=== PATIENT | female | born 1975 | race Caucasian/White ===

== ENCOUNTER → 2017-04-14 | Outpatient (CLI) | payer MEDICAID ==
--- NOTE | 2017-04-15 08:50 | MM ---
Reason for exam: additional evaluation requested from prior study. Last mammogram was performed 1 year and 7 months ago. History: Family history of breast cancer in maternal grandmother at age 50. Benign excisional biopsy of both breasts, 1994. Physical Findings: Nurse Summary: 1 x 1cm/1 x 1.5cm nodule in the right breast at 6 o'clock/9 o'clock (multiple) and a 1 x 1.5cm nodule in the left breast at 3 o'clock (nurse ts). MG 3D Diag Mammo W/Cad DIONNE Bilateral CC and MLO view(s) were taken. Prior study comparison: September 24, 2015, bilateral MG 3d diag mammo w/cad DIONNE. October 15, 2014, right breast MG work up mamm w CAD RT. October 08, 2014, bilateral MG screening mammo w CAD. The breast tissue is extremely dense which could obscure a lesion on mammography. Finding: There is a typically benign equal density (isodense), oval mass located 9 cm from the nipple in the upper outer quadrant, posterior position of the right breast consistent with palpable abnormality and ultrasound. New finding and no significant changes in finding since September 24, 2015, October 15, 2014, and October 08, 2014. These results were verbally communicated with the patient and result sheet given to the patient on 04/14/17. ASSESSMENT: Probably benign, BI-RAD 3 RECOMMENDATION: Ultrasound core biopsy of the right breast. Called Dr. Vega with mammographic findings and has scheduled an appointment for the patient for 05/03/17 at 9:[address] Doty. Biopsy scheduled for 04/25/17 at 8:00. PRELIMINARY REPORT CALLED AND FAXED TO DR. DOTY ON 04/15/17.
--- NOTE | 2017-04-15 08:57 | USB ---
Reason for exam: additional evaluation requested from prior study. History: Family history of breast cancer in maternal grandmother at age 50. Benign excisional biopsy of both breasts, 1994. US Breast Limited BILAT Right breast ultrasound includes all four quadrants, the retroareolar region and axilla. Finding demonstrates a 0.8 x 0.7 x 0.4cm oval, mixed cluster at 12 o'clock, a 1.2 x 1.1 x 0.4cm oval, cystic cluster at 1 o'clock, a 0.7 x 1.1 x 0.3cm oval, mixed lesion at 2 o'clock, a 0.8 x 0.5 x 0.2cm oval, mixed lesion at 5 o'clock, a 0.5 x 0.4 x 0.2cm oval, mixed lesion at 5 o'clock, a 0.4 x 0.3 x 0.2cm oval, cystic lesion at 8 o'clock, a 1.0 x 0.7 x 0.8cm oval, mixed cluster at 9 o'clock corresponds to palpable, cyst aspiration versus biopsy, a 0.6 x 0.7 x 0.4cm oval, cystic lesion at 9 o'clock, a 0.3 x 0.4 x 0.3cm oval, cystic lesion at 10 o'clock, a 1.5 x 1.5 x 0.8cm oval, mixed lesion for which a biopsy is recommended and a 0.5 x 0.6 x 0.3cm oval, cystic lesion, cluster wall cysts at 11 o'clock. Left breast ultrasound demonstrates a 0.4 x 0.2 x 0.1cm oval lesion too small to characterize at 3 o'clock, a 0.5 x 0.4 x 0.3cm cystic lesion at 3 o'clock and a 0.2 x 0.4 x 0.2cm cystic lesion at 5 o'clock. No suspicious ultrasound finding at left 4 o'clock palpable. These results were verbally communicated with the patient and result sheet given to the patient on 04/14/17. ASSESSMENT: Suspicious, BI-RAD 4 RECOMMENDATION: Aspiration and ultrasound core biopsy of the right breast. Called Dr. Vega with mammographic findings and has scheduled an appointment for the patient for 05/03/17 at 9:[address] Doty. Biopsy scheduled for 04/25/17 at 8:00. PRELIMINARY REPORT CALLED AND FAXED TO DR. DOTY ON 04/15/17.
== END | disposition home or self-care (01) ==
LOC: RADMAMWWP 09:40
PROVIDERS: ATTEND Obstetrics & Gynecology
DX: R92.8 Other abnormal and inconclusive findings on diagnostic imaging of breast (principal)
CPT/HCPCS: 77066; 76642; G0279

== ENCOUNTER → 2017-04-25 | Day surgery (SDC) | payer MEDICAID ==
[2017-04-25 07:30] VITALS: RESP 16; TEMP 97.9; BMI 25.0
--- NOTE | 2017-04-25 08:43 | USB ---
EXAMINATION TYPE: US biopsy breast VAD RT, MG diagnostic mammo RT wo CAD, US breast aspiration single RT DATE OF EXAM: 04/25/2017 CLINICAL HISTORY: R92.8 Abn mammo. Abnormal ultrasound TECHNIQUE: Ultrasound guided fine-needle aspiration and ultrasound-guided core biopsy of right breast with clip placement and follow-up two-view mammogram. COMPARISON: Prior breast mammogram and ultrasound April 14, 2017 and older studies. FINDINGS: The procedure of ultrasound guided fine-needle aspiration and/or core biopsy was explained to the patient. Benefits, alternatives, and risks were discussed. An informed consent was then obtained. The patient was placed in supine positioning for imaging and for the procedure. Preprocedure imaging redemonstrates oval lobulated hypoechoic anechoic lesion measuring 1.2 cm long axis zone B /C 9:00 position right breast. It also identified oval somewhat poorly defined heterogeneous hypoechoic area surrounded by dense tissue measuring 1.5 cm 10:00 position zone A right breast. The overlying skin was prepped and draped in usual sterile fashion. Lidocaine buffered with bicarbonate was used as anesthetic into the skin and subcutaneous tissue up to both areas of concern in the right breast. Under ultrasound guidance, 18-gauge needle was used to aspirate less than 1 cc of dark-colored fluid at 9:00 position. Lesion was aspirated to near complete resolution. No bright red blood was identified. Fluid was discarded. Clip was not placed. Under ultrasound guidance, a 12-gauge vacuum assisted biopsy gun device was used to obtain 3 core samples at 10:00 lesion. Following this, a biopsy clip was left in lesion. The patient tolerated the procedure well without any immediate complication. The patient was kept in the radiology department for short stay after the procedure and then discharged home in stable condition. Postprocedure mammogram shows successful deployment of clip upper outer quadrant at level of dense tissue. IMPRESSION: Successful, uncomplicated ultrasound guided fine-needle aspiration 9 :00 lesion and core biopsy of 10:00 lesion at areas of concern in the right breast, full pathology results to follow for 10:00 lesion. Low index of suspicion noted at time of procedure. Favor dense parenchyma mimicking lesion. Pathology Results: Benign BREAST, RIGHT, 10:00, CORE BIOPSY: FIBROCYSTIC CHANGES INCLUDING FIBROSIS, SCLEROSING ADENOSIS AND MICROCALCIFICATIONS. PSEUDOANGIOMATOUS STROMAL HYPERPLASIA (PASH). Recommendation Follow up ultrasound of the right breast in 6 months. Surgical consult of the right breast. (PASH) ZACHARY
[2017-04-25 08:56] VITALS: BP 138/81; PULSE 82
== END ==
LOC: RADUSWWP 06:55
PROVIDERS: ATTEND Surgery
DX: N60.31 Fibrosclerosis of right breast (principal); N60.21 Fibroadenosis of right breast; R92.0 Mammographic microcalcification found on diagnostic imaging of breast; N62 Hypertrophy of breast
CPT/HCPCS: 88305; 77065; 76942; 19000; 19083; A4648; J2001

== ENCOUNTER 2017-07-22 09:57 | Emergency (ER) | payer MEDICAID ==
[2017-07-22] MEDS ORDERED: MECLIZINE 12.5 MG TAB PO STA (10:57)
[2017-07-22] MEDS ORDERED: ONDANSETRON ODT 4 MG TAB PO STA (10:57)
[2017-07-22 11:03] VITALS: RESP 18
[2017-07-22 11:21] LABS: Appearance,Urine Cloudy (Clear); Bacteria,Urine Rare /hpf; Bilirubin,Urine Negative (Negative); Blood,Urine Small (Negative); Color,Urine Yellow; Glucose,Urine (UA) Negative (Negative); Ketones,Urine Negative (Negative); Leukocyte Esterase,Urine Negative (Negative); Mucus,Urine Rare /hpf; Nitrite,Urine Negative (Negative); Protein,Urine Negative (Negative); RBC,Urine 6 /hpf (0-5); Squamous Epithelial Cell,Urine 6 /hpf (0-4); Urobilinogen,Urine <2.0 mg/dL (<2.0); WBC,Urine 4 /hpf (0-5)
--- NOTE | 2017-07-22 11:52 | CT ---
EXAMINATION TYPE: CT brain wo con DATE OF EXAM: 07/22/2017 COMPARISON: NONE HISTORY: Patient complains of headache and dizziness. CT DLP: 1067 mGycm. Automated Exposure Control for Dose Reduction was Utilized. TECHNIQUE: CT scan of the head is performed without contrast. FINDINGS: There is no acute intracranial hemorrhage, mass effect, or midline shift identified. The ventricles and sulci are within normal limits in size. The globes are intact and the visualized sin uses are clear. IMPRESSION: No acute intracranial hemorrhage, mass effect, or midline shift is seen. If symptoms per sist follow-up MRI recommended.
--- NOTE | 2017-07-22 12:07 | ED ---
General Adult HPI - General Chief complaint: Dizziness Stated complaint: Dizziness Time Seen by Provider: 07/22/17 10:36 Source: patient, RN notes reviewed, old records reviewed Mode of arrival: wheelchair Limitations: no limitations - History of Present Illness Initial comments: This is a 42-year-old female the ER for evasive dizziness. Patient has sudden onset of dizziness and room spinning while at work today. No prior medical history no medical history of similar things, no recent trauma no significant headache. No medications no change in medications no drugs or alcohol. No high blood pressure high cholesterol diabetes or smoking. Patient does suffer from some ear issues and does have some right-sided ear pain - Related Data Home Medications Medication Instructions Recorded Confirmed Ranitidine HCl [Zantac] 150 mg PO DAILY PRN 02/24/17 07/22/17 Sertraline [Zoloft] 200 mg PO HS 02/24/17 07/22/17 clonazePAM [KlonoPIN] 0.25 mg PO QAM 02/24/17 07/22/17 clonazePAM [KlonoPIN] 0.5 mg PO HS 02/24/17 07/22/17 Previous Rx's Medication Instructions Recorded Meclizine [Antivert] 25 mg PO TID #15 tab 07/22/17 Ondansetron Odt [Zofran ODT] 4 mg PO Q8HR PRN #30 tab 07/22/17 Allergies Allergy/AdvReac Type Severity Reaction Status Date / Time Sulfa (Sulfonamide Allergy Mild tongue Verified 07/22/17 10:33 Antibiotics) swelling Review of Systems ROS Statement: Those systems with pertinent positive or pertinent negative responses have been documented in the HPI. ROS Other: All systems not noted in ROS Statement are negative. Past Medical History Past Medical History: No Reported History History of Any Multi-Drug Resistant Organisms: None Reported Past Surgical History: Appendectomy, Section, Tonsillectomy, Tubal Ligation Additional Past Surgical History / Comment(s): bunionectomy bilateral feet x2, bilateral excisional breast biopsy-benign 1994. Past Anesthesia/Blood Transfusion Reactions: No Reported Reaction Past Psychological History: No Psychological Hx Reported Smoking Status: Heavy tobacco smoker Past Alcohol Use History: Occasional Past Drug Use History: None Reported General Exam - General Exam Comments Initial Comments: Heel hogan and finger to nose testing is normal Limitations: no limitations General appearance: alert, in no apparent distress Head exam: Present: atraumatic, normocephalic, normal inspection Eye exam: Present: normal appearance, PERRL, EOMI. Absent: scleral icterus, conjunctival injection, periorbital swelling ENT exam: Present: normal exam, mucous membranes moist Neck exam: Present: normal inspection. Absent: tenderness, meningismus, lymphadenopathy Respiratory exam: Present: normal lung sounds bilaterally. Absent: respiratory distress, wheezes, rales, rhonchi, stridor Cardiovascular Exam: Present: regular rate, normal rhythm, normal heart sounds. Absent: systolic murmur, diastolic murmur, rubs, gallop, clicks GI/Abdominal exam: Present: soft, normal bowel sounds. Absent: distended, tenderness, guarding, rebound, rigid Extremities exam: Present: normal inspection, full ROM, normal capillary refill. Absent: tenderness, pedal edema, joint swelling, calf tenderness Back exam: Present: normal inspection Neurological exam: Present: alert, oriented X3, CN II-XII intact Psychiatric exam: Present: normal affect, normal mood Skin exam: Present: warm, dry, intact, normal color. Absent: rash Course Vital Signs 07/22/17 07/22/17 10:22 11:00 Temperature 97.9 F Pulse Rate 70 72 Respiratory 16 18 Rate Blood Pressure 187/100 160/90 O2 Sat by Pulse 99 99 Oximetry - Reevaluation(s) Reevaluation #1: 07/22/17 12:06 Patient is able to ambulate Medical Decision Making - Medical Decision Making 42 female the ER for evaluation, positive symptoms of vertigo, no neurological deficits found on exam, patient's CT negative can be discharged home able to ambulate without ataxia - Lab Data Lab Results 07/22/17 07/22/17 Range/Units 10:55 10:55 Urine Color Yellow Urine Appearance Cloudy H (Clear) Urine pH 7.0 (5.0-8.0) Ur Specific [place] 1.010 (1.001-1.035) Urine Protein Negative (Negative) Urine Glucose (UA) Negative (Negative) Urine Ketones Negative (Negative) Urine Blood Small H (Negative) Urine Nitrite Negative (Negative) Urine Bilirubin Negative (Negative) Urine Urobilinogen <2.0 (<2.0) mg/dL Ur Leukocyte Esterase Negative (Negative) Urine RBC 6 H (0-5) /hpf Urine WBC 4 (0-5) /hpf Ur Squamous Epith Cells 6 H (0-4) /hpf Urine Bacteria Rare H (None) /hpf Urine Mucus Rare H (None) /hpf Urine HCG, Qual Not Detected (Not Detectd) - Radiology Data Radiology results: report reviewed (CT brain negative), image reviewed Disposition Clinical Impression: Benign paroxysmal positional vertigo Disposition: HOME SELF-CARE Condition: Good Instructions: Vertigo (ED), Meniere Disease (ED), Benign Paroxysmal Positional Vertigo (ED) Is patient prescribed a controlled substance at d/c from ED?: No Referrals: Moo Hilliard MD [Primary Care Provider] - 1-2 days
[2017-07-22 12:40] VITALS: BP 127/62; PULSE 61; TEMP 98.6
== END 2017-07-22 12:38 | disposition home or self-care (01) ==
LOC: EC 09:57
DX: H81.10 Benign paroxysmal vertigo, unspecified ear (principal); H92.01 Otalgia, right ear; F17.200 Nicotine dependence, unspecified, uncomplicated; Z79.899 Other long term (current) drug therapy; Z88.2 Allergy status to sulfonamides
CPT/HCPCS: 70450; 81001; 81025; 87086; 99284

== ENCOUNTER → 2017-10-05 | Outpatient (CLI) | payer MEDICAID ==
[2017-10-05 11:31] LABS: Basophils # (A) 0.1 k/uL (0-0.2); Basophils % (A) 1 %; Eosinophils # (A) 0.2 k/uL (0-0.7); Eosinophils % (A) 2 %; HCT 43.3 % (34.0-46.0); HGB 14.4 gm/dL (11.4-16.0); Lymphocytes # (A) 1.5 k/uL (1.0-4.8); Lymphocytes % (A) 15 %; MCH 29.1 pg (25.0-35.0); MCHC 33.2 g/dL (31.0-37.0); MCV 87.6 fL (80.0-100.0); Mean Platelet Volume 7.1; Monocytes # (A) 0.4 k/uL (0-1.0); Monocytes % (A) 4 %; Neutrophils # (A) 7.6 k/uL (1.3-7.7); Neutrophils % (A) 77 %; Platelet Count 254 k/uL (150-450); RBC 4.95 m/uL (3.80-5.40); RDW 13.5 % (11.5-15.5); WBC 9.9 k/uL (3.8-10.6)
[2017-10-05 13:30] LABS: C Reactive Protein 5.1 mg/L (<10.0); Calcium 9.6 mg/dL (8.4-10.2)
[2017-10-05 13:41] LABS: T4, Free (Free Thyroxine) 0.95 ng/dL (0.78-2.19)
[2017-10-05 16:33] LABS: Rheumatoid Factor 6 IU/mL (0-15)
[2017-10-05 16:40] LABS: Folate, Serum 6.6 ng/mL; Thyroid Peroxidase Antibodies 36.8 U/mL (0.0-60.0)
[2017-10-05 16:49] LABS: RNP <0.2 AI; Scleroderma SC-70 Ab <0.2 AI
[2017-10-05 17:08] LABS: Parathyroid Hormone Intact 51.9 pg/mL (14.0-72.0); Vitamin D 25 Hydroxy 21.2 ng/mL (30.0-100.0)
[2017-10-06 04:35] LABS: Angiotensin-1 Converting Enz. 27 U/L (8-52)
[2017-10-06 10:28] LABS: Albumin 4.11 g/dL (3.80-4.90); Gamma Globulin 0.88 g/dL (0.70-1.50)
[2017-10-06 13:57] LABS: C-ANCA <1:20 Titer (<1:20); P-ANCA <1:20 Titer (<1:20)
== END | disposition home or self-care (01) ==
LOC: LABWHC1 10:38
PROVIDERS: ATTEND Otolaryngology Otolaryngology/Facial Plastic Surgery
DX: H90.5 Unspecified sensorineural hearing loss (principal)
CPT/HCPCS: 36415; 82164; 82306; 82310; 82607; 82746; 82785; 83516; 83970; 84165; 84439; 84443; 84480; 85025; 86038; 86140; 86162; 86235; 86255; 86376; 86431; 86618; 86780

== ENCOUNTER → 2017-10-20 | Outpatient (CLI) | payer MEDICAID ==
--- NOTE | 2017-10-20 17:17 | MR ---
EXAMINATION TYPE: MR brain and iac wo/w con DATE OF EXAM: 10/20/2017 COMPARISON: HISTORY: Acoustic neuroma, right hearing loss, dizziness CONTRAST: Performed utilizing 7 mL intravenous Gadavist gadolinium contrast. TECHNIQUE: Multiplanar, multiecho imaging on a 3.0 Kerri magnet is performed through the brain. Atte ntion is paid to the internal auditory canals with thin section imaging. Postcontrast imaging is per formed through the internal auditory canals. FINDINGS:Craniovertebral junction is normal. The pituitary is normal. Diffusion-weighted imaging is performed. No suspicious hyperintensity is present to suggest an acute intracranial infarct or acute ischemic area. Signal within the brain is unremarkable. No suspicious hyperintensity or other defects are evident. Thin section imaging is performed through the internal auditory canals and cerebellar pontine angles. No cerebellar pontine angle masses are evident. The internal auditory canals appear normal without expansion or erosion. Postcontrast imaging was performed. No suspicious enhancement is evident within the internal audito ry canals or the included portions of the brain. Mucosal thickening is through the left maxillary sinus. Remaining paranasal sinuses are clear. Mastoi d air cells are clear. IMPRESSIONS: 1. Normal internal auditory canals. 2. MRI brain appears unremarkable. 3. Mucosal thickening through the left maxillary sinus.
== END | disposition home or self-care (01) ==
LOC: RADMRIMAIN 11:43
PROVIDERS: ATTEND Otolaryngology Otolaryngology/Facial Plastic Surgery
DX: D33.3 Benign neoplasm of cranial nerves (principal)
CPT/HCPCS: 70553; A9581

== ENCOUNTER 2018-03-31 15:57 | Emergency (ER) | payer MEDICAID ==
[2018-03-31 16:01] VITALS: RESP 18
[2018-03-31] MEDS ORDERED: SODIUM CHLORIDE 0.9% 1,000 ML IV STA (16:04)
--- NOTE | 2018-03-31 16:05 | ED ---
Nausea/Vomiting/Diarrhea HPI - General Chief complaint: Nausea/Vomiting/Diarrhea Stated complaint: vertigo Time Seen by Provider: 03/31/18 16:03 Source: patient, RN notes reviewed, old records reviewed Mode of arrival: ambulatory Limitations: no limitations - History of Present Illness Initial comments: This is a 42-year-old female the ER for evaluation of nausea vomiting and vertiginous symptoms. Room was spinning severely currently. Patient took Antivert with no help. Patient does have history of vertigo is follow-up with ENT with no acute cause found. Patient denies headache denies any other neurological complaints. Symptoms started abruptly with changing and moving her head to the left, symptoms have persisted currently. No current active vomiting the patient does feel like the room is spinning MD complaint: nausea, vomiting (With vertigo) -: hour(s) Description of Vomiting: food contents, bilious Associated Abdominal Pain: No Radiation: none Severity: moderate (Vertigo) Quality: other (No pain) Improves with: movement (Laying still) Worsens with: movement (To the right) Context: other (Patient does have vertigo history of vertigo) Associated Symptoms: nausea/vomiting (And vertigo) - Related Data Home Medications Medication Instructions Recorded Confirmed Ranitidine HCl [Zantac] 150 mg PO DAILY PRN 02/24/17 03/31/18 Sertraline [Zoloft] 200 mg PO HS 02/24/17 03/31/18 clonazePAM [KlonoPIN] 0.25 mg PO QAM 02/24/17 03/31/18 clonazePAM [KlonoPIN] 0.5 mg PO HS 02/24/17 03/31/18 Meclizine [Antivert] 25 mg PO TID PRN 03/31/18 03/31/18 Previous Rx's Medication Instructions Recorded Ondansetron Odt [Zofran ODT] 4 mg PO Q8HR PRN #30 tab 07/22/17 Ondansetron Odt [Zofran ODT] 4 mg PO Q8HR PRN #10 tab 03/31/18 Allergies Allergy/AdvReac Type Severity Reaction Status Date / Time Sulfa (Sulfonamide Allergy Mild tongue Verified 03/31/18 16:19 Antibiotics) swelling Review of Systems ROS Statement: Those systems with pertinent positive or pertinent negative responses have been documented in the HPI. ROS Other: All systems not noted in ROS Statement are negative. Past Medical History Past Medical History: No Reported History History of Any Multi-Drug Resistant Organisms: None Reported Past Surgical History: Appendectomy, Section, Tonsillectomy, Tubal Ligation Additional Past Surgical History / Comment(s): bunionectomy bilateral feet x2, bilateral excisional breast biopsy-benign 1994. Past Anesthesia/Blood Transfusion Reactions: No Reported Reaction Past Psychological History: No Psychological Hx Reported Smoking Status: Heavy tobacco smoker Past Alcohol Use History: Occasional Past Drug Use History: None Reported General Exam Limitations: no limitations General appearance: alert, in no apparent distress Head exam: Present: atraumatic, normocephalic, normal inspection Eye exam: Present: normal appearance, PERRL, EOMI, nystagmus (To the left). Absent: scleral icterus, conjunctival injection, periorbital swelling ENT exam: Present: normal exam, mucous membranes moist Neck exam: Present: normal inspection. Absent: tenderness, meningismus, lymphadenopathy Respiratory exam: Present: normal lung sounds bilaterally. Absent: respiratory distress, wheezes, rales, rhonchi, stridor Cardiovascular Exam: Present: regular rate, normal rhythm, normal heart sounds. Absent: systolic murmur, diastolic murmur, rubs, gallop, clicks GI/Abdominal exam: Present: soft, normal bowel sounds. Absent: distended, tenderness, guarding, rebound, rigid Extremities exam: Present: normal inspection, full ROM, normal capillary refill. Absent: tenderness, pedal edema, joint swelling, calf tenderness Back exam: Present: normal inspection Neurological exam: Present: alert, oriented X3, CN II-XII intact Psychiatric exam: Present: normal affect, normal mood Skin exam: Present: warm, dry, intact, normal color. Absent: rash Course Vital Signs 03/31/18 03/31/18 16:00 17:00 Temperature 97.5 F L Pulse Rate 81 69 Respiratory 18 18 Rate Blood Pressure 146/75 125/85 O2 Sat by Pulse 99 93 L Oximetry - Reevaluation(s) Reevaluation #1: 03/31/18 18:55 Medical records reviewed Reevaluation #2: 03/31/18 18:56 Symptoms mildly improved with mild sedation. Patient is able to ambulate Medical Decision Making - Medical Decision Making 42 female the ER for evaluation of vertiginous symptoms. BPPV. Patient has had prior workup with no diagnostic cause found. Patient's nausea vomiting and vertigo. No ataxia and can be discharged home - Lab Data Result diagrams: 03/31/18 16:47 03/31/18 16:47 Lab Results 03/31/18 03/31/18 03/31/18 Range/Units 16:47 16:47 16:47 WBC 9.5 (3.8-10.6) k/uL RBC 4.72 (3.80-5.40) m/uL Hgb 13.9 (11.4-16.0) gm/dL Hct 41.0 (34.0-46.0) % MCV 86.8 (80.0-100.0) fL MCH 29.3 (25.0-35.0) pg MCHC 33.8 (31.0-37.0) g/dL RDW 13.9 (11.5-15.5) % Plt Count 235 (150-450) k/uL Neutrophils % 71 % Lymphocytes % 19 % Monocytes % 4 % Eosinophils % 3 % Basophils % 1 % Neutrophils # 6.8 (1.3-7.7) k/uL Lymphocytes # 1.8 (1.0-4.8) k/uL Monocytes # 0.4 (0-1.0) k/uL Eosinophils # 0.3 (0-0.7) k/uL Basophils # 0.1 (0-0.2) k/uL PT (9.0-12.0) sec INR (<1.2) APTT (22.0-30.0) sec Sodium 139 (137-145) mmol/L Potassium 3.3 L (3.5-5.1) mmol/L Chloride 106 (98-107) mmol/L Carbon Dioxide 24 (22-30) mmol/L Anion Gap 9 mmol/L BUN 13 (7-17) mg/dL Creatinine 0.80 (0.52-1.04) mg/dL Est GFR (CKD-EPI)AfAm >90 (>60 ml/min/1.73 sqM) Est GFR (CKD-EPI)NonAf >90 (>60 ml/min/1.73 sqM) Glucose 105 H (74-99) mg/dL Plasma Lactic Acid [place] (0.7-2.0) mmol/L Calcium 9.6 (8.4-10.2) mg/dL Phosphorus 3.2 (2.5-4.5) mg/dL Total Bilirubin 0.4 (0.2-1.3) mg/dL AST 34 (14-36) U/L ALT 50 (9-52) U/L Alkaline Phosphatase 105 (38-126) U/L Total Creatine Kinase 45 (30-135) U/L CK-MB (CK-2) <0.2 (0.0-2.4) ng/mL CK-MB (CK-2) Rel Index Troponin I <0.012 (0.000-0.034) ng/mL Total Protein 7.4 (6.3-8.2) g/dL Albumin 4.4 (3.5-5.0) g/dL Urine Color Urine Appearance (Clear) Urine pH (5.0-8.0) Ur Specific [place] (1.001-1.035) Urine Protein (Negative) Urine Glucose (UA) (Negative) Urine Ketones (Negative) Urine Blood (Negative) Urine Nitrite (Negative) Urine Bilirubin (Negative) Urine Urobilinogen (<2.0) mg/dL Ur Leukocyte Esterase (Negative) Urine RBC (0-5) /hpf Urine WBC (0-5) /hpf Ur Squamous Epith Cells (0-4) /hpf Amorphous Sediment (None) /hpf 03/31/18 03/31/18 03/31/18 Range/Units 16:47 16:47 18:00 WBC (3.8-10.6) k/uL RBC (3.80-5.40) m/uL Hgb (11.4-16.0) gm/dL Hct (34.0-46.0) % MCV (80.0-100.0) fL MCH (25.0-35.0) pg MCHC (31.0-37.0) g/dL RDW (11.5-15.5) % Plt Count (150-450) k/uL Neutrophils % % Lymphocytes % % Monocytes % % Eosinophils % % Basophils % % Neutrophils # (1.3-7.7) k/uL Lymphocytes # (1.0-4.8) k/uL Monocytes # (0-1.0) k/uL Eosinophils # (0-0.7) k/uL Basophils # (0-0.2) k/uL PT 9.8 (9.0-12.0) sec INR 0.9 (<1.2) APTT 21.1 L (22.0-30.0) sec Sodium (137-145) mmol/L Potassium (3.5-5.1) mmol/L Chloride (98-107) mmol/L Carbon Dioxide (22-30) mmol/L Anion Gap mmol/L BUN (7-17) mg/dL Creatinine (0.52-1.04) mg/dL Est GFR (CKD-EPI)AfAm (>60 ml/min/1.73 sqM) Est GFR (CKD-EPI)NonAf (>60 ml/min/1.73 sqM) Glucose (74-99) mg/dL Plasma Lactic Acid [place] 1.1 (0.7-2.0) mmol/L Calcium (8.4-10.2) mg/dL Phosphorus (2.5-4.5) mg/dL Total Bilirubin (0.2-1.3) mg/dL AST (14-36) U/L ALT (9-52) U/L Alkaline Phosphatase (38-126) U/L Total Creatine Kinase (30-135) U/L CK-MB (CK-2) (0.0-2.4) ng/mL CK-MB (CK-2) Rel Index Troponin I (0.000-0.034) ng/mL Total Protein (6.3-8.2) g/dL Albumin (3.5-5.0) g/dL Urine Color Yellow Urine Appearance Turbid H (Clear) Urine pH 7.0 (5.0-8.0) Ur Specific [place] 1.020 (1.001-1.035) Urine Protein Trace H (Negative) Urine Glucose (UA) Negative (Negative) Urine Ketones Negative (Negative) Urine Blood Moderate H (Negative) Urine Nitrite Negative (Negative) Urine Bilirubin Negative (Negative) Urine Urobilinogen 2.0 (<2.0) mg/dL Ur Leukocyte Esterase Negative (Negative) Urine RBC 2 (0-5) /hpf Urine WBC 8 H (0-5) /hpf Ur Squamous Epith Cells 8 H (0-4) /hpf Amorphous Sediment Moderate H (None) /hpf - EKG Data -: EKG Interpreted by Me (EKG shows normal sinus rhythm rate of 75, NE 160, QRS 90, QTc 444) Disposition Clinical Impression: Vertigo, BPPV (benign paroxysmal positional vertigo) Disposition: HOME SELF-CARE Condition: Good Instructions: Vertigo (ED), Benign Paroxysmal Positional Vertigo (ED) Prescriptions: Ondansetron Odt [Zofran ODT] 4 mg PO Q8HR PRN #10 tab PRN Reason: nausea/vomiting Is patient prescribed a controlled substance at d/c from ED?: No Referrals: Moo Hilliard MD [Primary Care Provider] - 1-2 days
[2018-03-31] MEDS ORDERED: PANTOPRAZOLE 40 MG/10 ML VIAL IVP STA (16:06)
[2018-03-31] MEDS ORDERED: ONDANSETRON 4 MG/2 ML VIAL IVP STA (16:06)
[2018-03-31] MEDS ORDERED: diphenhydrAMINE 50 MG/ML 1 ML VIAL IVP STA (16:39)
[2018-03-31 17:07] LABS: Basophils # (A) 0.1 k/uL (0-0.2); Basophils % (A) 1 %; Eosinophils # (A) 0.3 k/uL (0-0.7); Eosinophils % (A) 3 %; HGB 13.9 gm/dL (11.4-16.0); Lymphocytes # (A) 1.8 k/uL (1.0-4.8); Lymphocytes % (A) 19 %; MCH 29.3 pg (25.0-35.0); MCHC 33.8 g/dL (31.0-37.0); MCV 86.8 fL (80.0-100.0); Mean Platelet Volume 6.6; Monocytes # (A) 0.4 k/uL (0-1.0); Monocytes % (A) 4 %; Neutrophils # (A) 6.8 k/uL (1.3-7.7); Neutrophils % (A) 71 %; Platelet Count 235 k/uL (150-450); RBC 4.72 m/uL (3.80-5.40); RDW 13.9 % (11.5-15.5); WBC 9.5 k/uL (3.8-10.6)
[2018-03-31 17:12] LABS: ALT 50 U/L (9-52); AST 34 U/L (14-36); Albumin 4.4 g/dL (3.5-5.0); Alkaline Phosphatase 105 U/L (38-126); Anion Gap 9 mmol/L; Blood Urea Nitrogen 13 mg/dL (7-17); Calcium 9.6 mg/dL (8.4-10.2); Carbon Dioxide 24 mmol/L (22-30); Chloride 106 mmol/L (98-107); Glucose 105 mg/dL (74-99); Phosphorus 3.2 mg/dL (2.5-4.5); Potassium 3.3 mmol/L (3.5-5.1); Sodium 139 mmol/L (137-145); Total Bilirubin 0.4 mg/dL (0.2-1.3); Total Protein 7.4 g/dL (6.3-8.2)
[2018-03-31 17:22] LABS: INR 0.9 (<1.2); Prothrombin Time 9.8 sec (9.0-12.0)
[2018-03-31 17:25] LABS: Partial Thromboplastin Time 21.1 sec (22.0-30.0)
[2018-03-31 17:26] LABS: Creatine Kinase 45 U/L (30-135)
[2018-03-31 17:38] LABS: Creatine Kinase MB <0.2 ng/mL (0.0-2.4); Troponin I <0.012 ng/mL (0.000-0.034)
[2018-03-31 18:24] LABS: Amorphous Sediment,Urine Moderate /hpf; Appearance,Urine Turbid (Clear); Bilirubin,Urine Negative (Negative); Blood,Urine Moderate (Negative); Color,Urine Yellow; Glucose,Urine (UA) Negative (Negative); Ketones,Urine Negative (Negative); Leukocyte Esterase,Urine Negative (Negative); Nitrite,Urine Negative (Negative); Protein,Urine Trace (Negative); RBC,Urine 2 /hpf (0-5); Squamous Epithelial Cell,Urine 8 /hpf (0-4); WBC,Urine 8 /hpf (0-5)
[2018-03-31] MEDS ORDERED: DIAZEPAM 5 MG/ML 2 ML INJ IVP STA (18:41)
[2018-03-31 19:00] VITALS: BP 123/78; PULSE 58; TEMP 98
== END 2018-03-31 19:09 | disposition home or self-care (01) ==
LOC: EC 15:57
DX: H81.10 Benign paroxysmal vertigo, unspecified ear (principal); R19.7 Diarrhea, unspecified; F17.200 Nicotine dependence, unspecified, uncomplicated; Z79.899 Other long term (current) drug therapy; Z88.2 Allergy status to sulfonamides
CPT/HCPCS: 36415; 93005; 80053; 82550; 82553; 83605; 84100; 84484; 85025; 85610; 85730; 81001; 87086; 99284; 96374; 96375 ×3; 96361 ×2; J1200; J3360; J2405; C9113

== ENCOUNTER 2018-07-20 10:08 | Observation (INO) | payer MEDICAID ==
[2018-07-20] MEDS ORDERED: ASPIRIN 81 MG PO STA (10:24)
[2018-07-20] MEDS ORDERED: NITROGLYCERIN SL TABS 0.4 MG TAB SUBLINGUAL STA (10:44)
--- NOTE | 2018-07-20 11:20 | XR ---
EXAMINATION TYPE: XR chest 2V DATE OF EXAM: 07/20/2018 COMPARISON: NONE HISTORY: Chest pain, nausea, dysrhythmia TECHNIQUE: Frontal and lateral views of the chest are obtained. FINDINGS: There is no focal air space opacity, pleural effusion, or pneumothorax seen. The cardiac silhouette size is within normal limits. The osseous structures are intact. IMPRESSION: No acute cardiopulmonary process.
[2018-07-20 11:21] LABS: Basophils # (A) 0.1 k/uL (0-0.2); Basophils % (A) 1 %; Eosinophils # (A) 0.1 k/uL (0-0.7); Eosinophils % (A) 2 %; HCT 40.8 % (34.0-46.0); HGB 13.7 gm/dL (11.4-16.0); Lymphocytes # (A) 1.8 k/uL (1.0-4.8); Lymphocytes % (A) 25 %; MCH 29.1 pg (25.0-35.0); MCHC 33.7 g/dL (31.0-37.0); MCV 86.3 fL (80.0-100.0); Mean Platelet Volume 6.8; Monocytes # (A) 0.3 k/uL (0-1.0); Monocytes % (A) 5 %; Neutrophils # (A) 4.7 k/uL (1.3-7.7); Neutrophils % (A) 65 %; Platelet Count 275 k/uL (150-450); RBC 4.73 m/uL (3.80-5.40); RDW 13.6 % (11.5-15.5); WBC 7.2 k/uL (3.8-10.6)
[2018-07-20 11:30] LABS: ALT 42 U/L (9-52); AST 29 U/L (14-36); Albumin 4.7 g/dL (3.5-5.0); Alkaline Phosphatase 92 U/L (38-126); Anion Gap 10 mmol/L; Blood Urea Nitrogen 14 mg/dL (7-17); Calcium 9.9 mg/dL (8.4-10.2); Carbon Dioxide 24 mmol/L (22-30); Chloride 106 mmol/L (98-107); Glucose 85 mg/dL (74-99); Magnesium 1.9 mg/dL (1.6-2.3); Potassium 4.1 mmol/L (3.5-5.1); Sodium 140 mmol/L (137-145); Total Bilirubin 0.4 mg/dL (0.2-1.3); Total Protein 7.5 g/dL (6.3-8.2)
[2018-07-20 11:40] LABS: D-Dimer 0.49 mg/L FEU (<0.60); INR 0.9 (<1.2); Partial Thromboplastin Time 23.9 sec (22.0-30.0); Prothrombin Time 9.8 sec (9.0-12.0)
--- NOTE | 2018-07-20 11:43 | ED ---
Chest Pain HPI - General Chief Complaint: Chest Pain Stated Complaint: chest discomfort Time Seen by Provider: 07/20/18 10:24 Source: patient, RN notes reviewed Mode of arrival: ambulatory Limitations: no limitations - History of Present Illness Initial Comments: This a 43-year-old female presents emergency Department chief complaint of chest pain. Patient states she has not felt well since Tuesday states that she's had some on-and-off palpitations to have progressed. She states is skipping a beat. Patient states she now has pressure in her chest and her back which has been present for last couple days. Patient does not admit to any shortness of breath. Patient does admit to a history of heavy smoking but does not smoke currently. No history of hypertension, hyperlipidemia, diabetes. There is some mild family heart disease. Patient does admit to some nausea no vomiting, diaphoretic episodes. Patient states nothing makes the pain feel better or worse. - Related Data Home Medications Medication Instructions Recorded Confirmed Ranitidine HCl [Zantac] 150 mg PO BID 02/24/17 07/20/18 Sertraline [Zoloft] 200 mg PO HS 02/24/17 07/20/18 clonazePAM [KlonoPIN] 0.25 mg PO QAM 02/24/17 07/20/18 clonazePAM [KlonoPIN] 0.5 mg PO HS 02/24/17 07/20/18 Meclizine [Antivert] 25 mg PO TID PRN 03/31/18 07/20/18 rOPINIRole HCL [Requip] 0.5 mg PO HS 07/20/18 07/20/18 Allergies Allergy/AdvReac Type Severity Reaction Status Date / Time Sulfa (Sulfonamide Allergy Mild tongue Verified 07/20/18 11:34 Antibiotics) swelling Review of Systems ROS Statement: Those systems with pertinent positive or pertinent negative responses have been documented in the HPI. ROS Other: All systems not noted in ROS Statement are negative. EKG Findings - EKG Comments: EKG Findings:: EKG performed at 10:33 sinus rhythm with PVC rate of 72 [place] 146 QRS 82 QT/QTC 378/413 Past Medical History Past Medical History: No Reported History History of Any Multi-Drug Resistant Organisms: None Reported Past Surgical History: Appendectomy, Section, Tonsillectomy, Tubal Ligation Additional Past Surgical History / Comment(s): bunionectomy bilateral feet x2, bilateral excisional breast biopsy-benign 1994. Past Anesthesia/Blood Transfusion Reactions: No Reported Reaction Past Psychological History: No Psychological Hx Reported Smoking Status: Heavy tobacco smoker Past Alcohol Use History: Occasional Past Drug Use History: None Reported General Exam Limitations: no limitations General appearance: alert, in no apparent distress Head exam: Present: atraumatic, normocephalic, normal inspection Eye exam: Present: normal appearance, PERRL, EOMI. Absent: scleral icterus, conjunctival injection, periorbital swelling ENT exam: Present: normal exam, normal oropharynx, mucous membranes moist Neck exam: Present: normal inspection, full ROM. Absent: tenderness, meningismus, lymphadenopathy Respiratory exam: Present: normal lung sounds bilaterally. Absent: respiratory distress, wheezes, rales, rhonchi, stridor Cardiovascular Exam: Present: regular rate, normal rhythm, normal heart sounds. Absent: systolic murmur, diastolic murmur, rubs, gallop, clicks GI/Abdominal exam: Present: soft, normal bowel sounds. Absent: distended, tenderness, guarding, rebound, rigid Neurological exam: Present: alert, oriented X3, CN II-XII intact Skin exam: Present: warm, dry, intact, normal color. Absent: rash Course Vital Signs 07/20/18 07/20/18 07/20/18 10:19 11:30 12:07 Temperature 97.4 F L Pulse Rate 70 68 62 Respiratory 18 16 18 Rate Blood Pressure 142/87 125/90 125/85 O2 Sat by Pulse 100 98 99 Oximetry Chest Pain [facility] 43-year-[facility] female presented for chest discomfort. Patient EKG and lab work are essentially unremarkable at this time. Patient will be admitted for cardiac observation and repeat troponin cardiology evaluation. Disposition Clinical Impression: Chest pain Disposition: ADMITTED IP TO THIS HOSP Condition: Fair Referrals: Moo Hilliard MD [Primary Care Provider] - 1-2 days
[2018-07-20] MEDS ORDERED: NITROGLYCERIN SL TABS 0.4 MG TAB SUBLINGUAL PRN (12:29)
[2018-07-20] MEDS ORDERED: HEPARIN SOD,PORK IN 0.45% NACL 25,000 UNIT in 0.45% NACL 1 250ML.BAG IV SCH (12:30)
[2018-07-20] MEDS: HEPARIN SODIUM,PORCINE 5,000 UNIT/ML 1 ML VIAL IV ONE ×2 (13:40→14:19)
--- NOTE | 2018-07-20 13:40 | P.HPIM ---
History of Present Illness H&P Date: 07/20/18 The patient is a 43-year-old female with a past medical history of 30 pack years of smoking, PVCs, and BPPV presented to the ED for left sided chest and shoulder pain, ongoing for the past 4 days. 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 On 07/17/2018, she noticed a left-sided chest pain accompanying the left shoulder pain, with some radiation to the back. The pain was a 1-2 out of 10, and pressure-like, with no alleviating or exacerbating features, nonexertional. She had no associated symptoms at that time. The patient continued with her daily routine until this morning she also noted a sudden onset of palpitations, nausea nausea with diaphoresis and some shortness of breath which resolved spontaneously within a few minutes. The patient subsequently came to the ED. The patient notes that her father from coronary artery disease at age 66, and was initially diagnosed in his late 50s. At time of interview, the patient reports that her pain is a 1 out of 10, and she denied any associated symptoms including palpitations, nausea, vomiting, fever, chills, cough, abdominal pain, or dysuria. She underwent an extensive evaluation with troponin less than 0.012, chest x-ray unremarkable, WBC 7.2, hemoglobin 13.7, platelets 275, creatinine 0.72, and d-dimer's within normal limits. EKG revealed normal sinus rhythm with PVCs at 72 bpm. The patient is being admitted to the medicine service under observation status for cardiology evaluation. Review of Systems Pertinent positives and negatives as discussed in HPI, a complete review of systems was performed and all other systems are negative. Past Medical History Past Medical History: No Reported History History of Any Multi-Drug Resistant Organisms: None Reported Past Surgical History: Appendectomy, Section, Tonsillectomy, Tubal Ligation Additional Past Surgical History / Comment(s): bunionectomy bilateral feet x2, bilateral excisional breast biopsy-benign 1994. Past Anesthesia/Blood Transfusion Reactions: No Reported Reaction Past Psychological History: No Psychological Hx Reported Smoking Status: Heavy tobacco smoker Past Alcohol Use History: Occasional Past Drug Use History: None Reported Medications and Allergies Home Medications Medication Instructions Recorded Confirmed Type Ranitidine HCl [Zantac] 150 mg PO BID 02/24/17 07/20/18 History Sertraline [Zoloft] 200 mg PO HS 02/24/17 07/20/18 History clonazePAM [KlonoPIN] 0.25 mg PO QAM 02/24/17 07/20/18 History clonazePAM [KlonoPIN] 0.5 mg PO HS 02/24/17 07/20/18 History Meclizine [Antivert] 25 mg PO TID PRN 03/31/18 07/20/18 History rOPINIRole HCL [Requip] 0.5 mg PO HS 07/20/18 07/20/18 History Allergies Allergy/AdvReac Type Severity Reaction Status Date / Time Sulfa (Sulfonamide Allergy Mild tongue Verified 07/20/18 11:34 Antibiotics) swelling Physical Exam Vitals: Vital Signs Temp Pulse Resp BP Pulse Ox 07/20/18 12:07 62 18 125/85 99 07/20/18 11:30 68 16 125/90 98 07/20/18 10:19 97.4 F L 70 18 142/87 100 Intake and Output 07/19/18 07/20/18 07/20/18 22:59 06:59 14:59 Other: Weight 77.111 kg General: non toxic, no distress, appears at stated age, normal weight Derm: no unusual rashes/lesions no unusual ecchymoses, warm, dry Head: atraumatic, normocephalic, symmetric Eyes: EOMI, no lid lag, anicteric sclera, pupils equal round reactive to light ENT: Nose and ears atraumatic, no thrush, no pharyngeal erythema Neck: No thyromegaly, no cervical lymphadenopathy, trachea midline, supple Mouth: no lip lesion, mucus membranes moist Cardiovascular: S1S2 reg, no murmur, positive posterior tibial pulse bilateral, no edema, capillary refill less than 2 seconds Lungs: CTA bilateral, no rhonchi, no rales , no accessory muscle use Abdominal: soft, nontender to palpation, no guarding, no appreciable organomegaly, normal bowel sounds Ext: no gross muscle atrophy, muscle strength 5 out of 5 in all 4 extremities grossly, no contractures, left thoracic paravertebral mild tenderness palpation, no chest wall tenderness Neuro: CN II-XI grossly intact, light touch intact all 4 extremities, finger to nose within normal limits, Psych: Alert, oriented, appropriate affect Results CBC & Chem 7: 07/20/18 10:52 07/20/18 10:52 Assessment and Plan Plan: Chest pain, rule out ACS -Cardiology consult -Cardiac monitoring -Trend troponin and EKG -Continue with aspirin -Nitroglycerin when necessary Former smoker, quit 6 months ago -Congratulated the patient on successfully quitting -Nicotine patch DVT prophylaxis -Heparin The patient is admitted with an anticipated less than 2 midnight stay for evaluation of chest pain. CODE STATUS:Full Code Discussed with: Patient, Anticipated discharge date: 07/21/[address]: Home A total of 35 minutes was spent on the care of this complex patient more than 50% of the time was spent in counseling and care coordination.
[2018-07-20] MEDS ORDERED: MECLIZINE 25 MG TAB PO PRN (21:30)
[2018-07-20] MEDS ORDERED: SERTRALINE 100 MG TAB PO SCH (22:00)
[2018-07-20] MEDS: FAMOTIDINE 20 MG TAB PO SCH (22:23)
[2018-07-20] MEDS ORDERED: clonazePAM 0.5 MG TAB PO SCH (22:30)
[2018-07-21 05:11] VITALS: RESP 16
[2018-07-21 06:48] LABS: Mean Platelet Volume 6.9; Platelet Count 256 k/uL (150-450)
[2018-07-21 06:52] LABS: Cholesterol 161 mg/dL (<200); HDL Cholesterol 45 mg/dL (40-60); LDL Cholesterol,Calculated 97 mg/dL (0-99); Triglycerides 94 mg/dL (<150)
[2018-07-21] MEDS ORDERED: ASPIRIN 325 MG TAB PO SCH (09:00)
[2018-07-21] MEDS ORDERED: ASPIRIN 81 MG PO SCH (09:00)
[2018-07-21] MEDS ORDERED: clonazePAM 0.5 MG TAB PO SCH ×2 (09:00→21:00)
[2018-07-21] MEDS: FAMOTIDINE 20 MG TAB PO SCH (10:16)
[2018-07-21 12:27] VITALS: BP 110/76; PULSE 82; TEMP 97.5
--- NOTE | 2018-07-21 12:28 | ECHOF ---
Referral Reason:palpitations MEASUREMENTS -------- HEIGHT: 165.1 cm WEIGHT: 77.1 kg BP: RVIDd: 3.4 cm (< 3.3) IVSd: 0.8 cm (0.6 - 1.1) LVIDd: 4.5 cm (3.9 - 5.3) LVPWd: 1.1 cm (0.6 - 1.1) IVSs: 1.2 cm LVIDs: 3.1 cm LVPWs: 1.2 cm LA Diam: 3.0 cm (2.7 - 3.8) LAESV Index (A-L): 14.23 ml/m Ao Diam: 3.1 cm (2.0 - 3.7) AV Cusp: 1.9 cm (1.5 - 2.6) LA Diam: 3.0 cm (2.7 - 3.8) MV EXCURSION: 13.883 mm (> 18.000) MV EF SLOPE: 58 mm/s (70 - 150) EPSS: 0.4 cm MV E Jay: 0.61 m/s MV DecT: 338 ms MV A Jay: 0.77 m/s MV E/A Ratio: 0.79 RAP: 5.00 mmHg RVSP: 19.65 mmHg FINDINGS -------- Sinus rhythm. This was a technically good study. LV size, wall thickness and systolic function are normal, with an EF greater than 55%. The left fredis tricular size is normal. The right ventricle is normal in size. The left atrial size is normal. The right atrial size is normal. Interatrial and interventricular septum intact. The aortic valve is trileaflet, and appears structurally normal. No aortic stenosis or regurgitation. Mild mitral annular calcification present. Mild mitral regurgitation is present. Mild tricuspid regurgitation present. There is no evidence of pulmonary hypertension. The right v entricular systolic pressure, as measured by Doppler, is 19.65mmHg. There is no pulmonic regurgitation present. The aortic root size is normal. Normal inferior vena cava with normal inspiratory collapse consistent with estimated right atrial pre ssure of 5 mmHg. There is no pericardial effusion. CONCLUSIONS -------- 1. LV size, wall thickness and systolic function are normal, with an EF greater than 55%. 2. The left ventricular size is normal. 3. The right ventricle is normal in size. 4. The left atrial size is normal. 5. The right atrial size is normal. 6. Interatrial and interventricular septum intact. 7. The aortic valve is trileaflet, and appears structurally normal. No aortic stenosis or regurgitati on. 8. Mild mitral annular calcification present. 9. Mild mitral regurgitation is present. 10. Mild tricuspid regurgitation present. 11. There is no evidence of pulmonary hypertension. 12. The right ventricular systolic pressure, as measured by Doppler, is 19.65mmHg. 13. There is no pulmonic regurgitation present. 14. The aortic root size is normal. 15. Normal inferior vena cava with normal inspiratory collapse consistent with estimated right atrial pressure of 5 mmHg. 16. There is no pericardial effusion. PLUSH BRUSHER: Josseline Whalen RDCS
--- NOTE | 2018-07-21 13:09 | ECHOS ---
STRESS ECHOCARDIOGRAM INDICATIONS: Chest pain and palpitations. MEDICATIONS: Zoloft, antacid. BASELINE HEART RATE: 70 BASELINE BLOOD PRESSURE: 115/81 MAXIMUM HEART RATE: 163 MAXIMUM BLOOD PRESSURE: 145/88 85% MPHR: 150 100% MPHR: 176 MAXIMUM STAGE REACHED: 3 TOTAL EXERCISE TIME: 8:23 CLINICAL INFORMATION: Baseline EKG revealed normal sinus rhythm without significant ST-T changes. Patient walked on standard Bobby protocol for 8 minutes 23 seconds, achieved a maximal heart rate of 163 beats per minute, developed fatigue and shortness of breath but did not have any angina or arrhythmia. EKG did not reveal any significant ST-segment changes to indicate ischemia. There was some baseline artifact noted. Upsloping nonspecific ST-segment changes were noted. There was no evidence of any ventricular or supraventricular ectopic beats. By EKG produces a negative stress test with fair exercise capacity. Baseline echo images revealed normal wall motion and wall thickening of all segments. At peak exercise, there was good augmentation of left and wall motion wall thickening of all segments suggesting that there is no evidence of stress-induced ischemia on this study. IMPRESSION: 1. Fair exercise capacity with a negative stress test by EKG criteria. 2. There was no significant arrhythmia before, during or after the stress test. 3. Normal stress echocardiogram without evidence of ischemia. MMODL / IJN: [id number] /
--- NOTE | 2018-07-21 14:02 | P.CRDCN ---
History of Present Illness History of present illness: This is a pleasant 43 year old female past medical history significant for gastroesophageal reflux disease and former nicotine dependence. She denies history of hypertension, dyslipidemia, diabetes mellitus or coronary artery disease. We've been asked to see her in consultation secondary to palpitations. She states she feels which she describes as her heart skipping a beat i ntermittently. Each time she feels the skipped beat she also feels a tight sensation in the midsternal region. This has been intermittent for the previous couple of days. Specific aggravating or alleviating factor. She denies any significant chest pain, shortness of breath, dizziness, nausea, vomiting or diaphoresis. She is seen and examined resting comfortably in bed in no acute distress. EKG reveals sinus mechanism with PACs noted. Chest x-ray is negative for an acute cardiopulmonary process. Laboratory data reviewed, WBC 7.2, hemoglobin 13.7, platelets 256, d-dimer 0.49, sodium 140, potassium 4.1, creatinine 0.72, magnesium 1.9, cardiac enzymes negative 3, TSH 1.77, free T3 3.4, LDL 97 HDL 45. She currently takes no cardiac medications on a daily basis. At the time of my exam: CONSTITUTIONAL: Denies fever. Denies chills. EYES: Denies blurred vision. Denies vision changes. Denies eye pain. EARS, NOSE, MOUTH & THROAT: Denies headache. Denies sore throat. Denies ear pain. CARDIOVASCULAR: Denies chest pain. Denies shortness of breath. Denies orthopnea. Denies PND. Complains of intermittent palpitations. RESPIRATORY: Denies cough. GASTROINTESTINAL: Denies abdominal pain. Denies diarrhea. Denies constipation. Denies nausea. Denies vomiting. MUSCULOSKELETAL: Denies myalgias. INTEGUMENTARY: Denies pruitis. Denies rash. NEUROLOGIC: Denies numbness. Denies tingling. Denies weakness. PSYCHIATRIC: Denies anxiety. Denies depression. ENDOCRINE: Denies fatigue. Denies weight change. Denies polydipsia. Denies polyurina. GENITOURINARY: Denies burning, hematuria or urgency with micturation. HEMATOLOGIC: Denies history of anemia. Denies bleeding. Blood pressure 110/76 heart rate 82 afebrile maintaining oxygen saturation on room air GENERAL: This is a 43-year-old female in no apparent distress at the time of my examination. HEENT: Head is atraumatic, normocephalic. Pupils are equal, round. Sclerae anicteric. Conjunctivae are clear. Mucous membranes of the mouth are moist. Neck is supple. There is no jugular venous distention. No carotid bruit is heard. LUNGS: Clear to auscultation no wheezes, rales or rhonchi. No chest wall tenderness is noted on palpation or with deep breathing. HEART: Regular rate and rhythm without murmurs, rubs or gallops. S1 and S2 heard. ABDOMEN: Soft, nontender. Bowel sounds are heard. No organomegaly noted. EXTREMITIES: No evidence of peripheral edema and no calf tenderness noted. VASCULAR: Radial and dorsalis pedis pulses palpated, no evidence of clubbing. NEUROLOGIC: Patient is awake, alert and oriented x3. ASSESSMENT Palpitations associated with chest discomfort. Acute coronary event has been ruled out. Former nicotine dependence, quit March 2018 PLAN Obtain 2-D echocardiogram and Doppler study to assess cardiac structure and function. Perform stress echocardiogram to assess for exercise endurance as well as frequency of PVC/PACs. If stress test is normal she may be discharged to follow-up with Dr. Ponce in the office in 2-3 weeks. Thank you kindly for this consultation. Nurse Practitioner note has been reviewed, I agree with a documented findings and plan of care. Patient was seen and examined. Past Medical History Past Medical History: GERD/Reflux, Pneumonia Additional Past Medical History / Comment(s): Bronchitis History of Any Multi-Drug Resistant Organisms: None Reported Past Surgical History: Appendectomy, Section, Tonsillectomy, Tubal Ligation Additional Past Surgical History / Comment(s): bunionectomy bilateral feet x2, bilateral excisional breast biopsy-benign 1994. Past Anesthesia/Blood Transfusion Reactions: No Reported Reaction Smoking Status: Former smoker - Past Family History Father Additional Family Medical History / Comment(s): Father had heart disease. He at the age of 66yrs. Mother Family Medical History: Cancer Additional Family Medical History / Comment(s): Mother is a pancreatic cancer survivor. She was treated for pancreatic cancer 10 yrs ago. Medications and Allergies Home Medications Medication Instructions Recorded Confirmed Type Ranitidine HCl [Zantac] 150 mg PO BID 02/24/17 07/20/18 History Sertraline [Zoloft] 200 mg PO HS 02/24/17 07/20/18 History clonazePAM [KlonoPIN] 0.25 mg PO QAM 02/24/17 07/20/18 History clonazePAM [KlonoPIN] 0.5 mg PO HS 02/24/17 07/20/18 History Meclizine [Antivert] 25 mg PO TID PRN 03/31/18 07/20/18 History rOPINIRole HCL [Requip] 0.5 mg PO HS 07/20/18 07/20/18 History Allergies Allergy/AdvReac Type Severity Reaction Status Date / Time Sulfa (Sulfonamide Allergy Mild tongue Verified 07/20/18 11:34 Antibiotics) swelling Physical Exam Vitals: Vital Signs Temp Pulse Pulse Pulse Resp BP Pulse Ox 07/21/18 12:00 97.5 F L 82 16 110/76 98 07/21/18 11:57 56 L 16 07/21/18 08:00 97.6 F 56 L 16 96/56 97 07/21/18 04:00 98.1 F 66 16 109/71 98 07/21/18 03:33 18 07/21/18 00:00 97.8 F 59 L 18 115/76 98 07/20/18 20:00 18 07/20/18 19:50 97.6 F 55 L 18 136/91 99 07/20/18 14:33 98.0 F 68 16 117/78 97 Intake and Output 07/20/18 07/21/18 07/21/18 22:59 06:59 14:59 Intake Total 400 702 Balance 400 702 Intake: Oral 400 702 Other: Voiding Method Toilet Toilet Toilet # Voids 2 1 2 Results 07/21/18 06:20 07/20/18 10:52 Cardiac Enzymes 07/20/18 07/20/18 Range/Units 16:42 22:35 Troponin I <0.012 <0.012 (0.000-0.034) ng/mL Lipids 07/21/18 Range/Units 06:20 Triglycerides 94 (<150) mg/dL Cholesterol 161 (<200) mg/dL HDL Cholesterol 45 (40-60) mg/dL CBC 07/21/18 Range/Units 06:20 Plt Count 256 (150-450) k/uL Current Medications Generic Name Dose Route Start Last Admin Trade Name Freq PRN Reason Stop Dose Admin Aspirin 81 mg 07/21/18 09:00 07/21/18 10:15 Aspirin PO 81 mg DAILY CRYSTAL Administration Clonazepam 0.25 mg 07/21/18 09:00 07/21/18 10:16 Klonopin PO 0.25 mg QAM CRYSTAL Administration Clonazepam 0.5 mg 07/20/18 22:30 07/20/18 22:23 Klonopin PO 0.5 mg HS CRYSTAL Administration Famotidine 20 mg 07/20/18 21:45 07/21/18 10:16 Pepcid PO 20 mg BID CRYSTAL Administration Meclizine HCl 25 mg 07/20/18 21:30 Antivert PO TID PRN Vertigo Nitroglycerin 0.4 mg 07/20/18 12:29 Nitrostat SUBLINGUAL Q5M PRN Chest Pain Ropinirole HCl 0.5 mg 07/20/18 22:00 07/20/18 22:23 Requip PO 0.5 mg HS CRYSTAL Administration Sertraline HCl 200 mg 07/20/18 22:00 07/20/18 22:23 Zoloft PO 200 mg HS CRYSTAL Administration Intake and Output 07/20/18 07/21/18 07/21/18 22:59 06:59 14:59 Intake Total 400 702 Balance 400 702 Intake: Oral 400 702 Other: Voiding Method Toilet Toilet Toilet # Voids 2 1 2 07/21/18 06:20 07/20/18 10:52
--- NOTE | 2018-07-21 14:25 | P.DS ---
Providers Date of admission: 07/20/18 12:40 Expected date of discharge: 07/21/18 Attending physician: Dustin Florentino MD Consults: 07/20/18 12:29 Consult Physician Urgent Consulting Provider: Gold Calderon Consult Reason/Comments: chest pain Do you want consulting provider notified?: Yes Primary care physician: Helen Newberry Joy Hospital Course: Patient is a frequent old female with a past medical history of GERD and ex- smoker who presented to the ED for 4 days of left-sided chest and shoulder pain. On 07/17/2018, she noticed a left-sided chest pain accompanying the left shoulder pain, with some radiation to the back. The pain was a 1-2 out of 10, and pressure-like, with no alleviating or exacerbating features, nonexertional. She had no associated symptoms at that time. The patient continued with her daily routine until the day of presentation when she also noted a sudden onset of palpitations, nausea nausea with diaphoresis and some shortness of breath which resolved spontaneously within a few minutes. The patient subsequently came to the ED. The patient had undergone an extensive evaluation in the ED with troponin negative, EKG unremarkable, and d-dimer 0.49. The patient was subsequently admitted under observation for cardiology evaluation and was started on heparin infusion. The patient was ultimately evaluated by cardiology who performed a stress echocardiogram which was negative for inducible ischemia. The patient was subsequently cleared for discharge and was advised to follow-up with Dr. Ponce in the office in 2-3 weeks. Discussed the results of the studies with the patient, and advised her that if her chest pain worsens, or she develops new chest pain, shortness of breath, palpitations, or dizziness, that she should go to the nearest ER. The patient was also advised to limit her caffeine intake to decrease the PVC frequency. The patient is otherwise ready, stable, and agreeable for discharge to home. Physical Examination General: Non-toxic, in no acute distress, appears stated age, normal weight HEENT: NC/AT, anicteric sclerae, moist conjunctiva, no lid-lag, PERRLA Cardiovascular: S1/S2 wnl, no murmurs, rubs, or gallops Lungs: Clear to auscultation, normal respiratory effort, no accessory muscle use Abdominal: Soft, non-tender, non-distended, no guarding, rebound, or rigidity Skin: Warm, dry Extremities: No edema or contractures Psychiatric: Alert and oriented to person, place and time, appropriate affect Neuro: CN II-XII grossly intact, Strength 5/5 in all 4 extremities, Speech intact, Sensation to light touch grossly intact throughout Discharge diagnosis: Atypical chest pain, GERD, previous nicotine dependence, PVCs A total of [] minutes of time were spent preparing this complex discharge summary. Patient Condition at Discharge: Good Plan - Discharge Summary Discharge Rx Participant: No New Discharge Prescriptions: Continue Sertraline [Zoloft] 200 mg PO HS Ranitidine HCl [Zantac] 150 mg PO BID clonazePAM [KlonoPIN] 0.25 mg PO QAM clonazePAM [KlonoPIN] 0.5 mg PO HS Meclizine [Antivert] 25 mg PO TID PRN PRN Reason: Vertigo rOPINIRole HCL [Requip] 0.5 mg PO HS Discharge Medication List Ranitidine HCl [Zantac] 150 mg PO BID 02/24/17 [History] Sertraline [Zoloft] 200 mg PO HS 02/24/17 [History] clonazePAM [KlonoPIN] 0.25 mg PO QAM 02/24/17 [History] clonazePAM [KlonoPIN] 0.5 mg PO HS 02/24/17 [History] Meclizine [Antivert] 25 mg PO TID PRN 03/31/18 [History] rOPINIRole HCL [Requip] 0.5 mg PO HS 07/20/18 [History] Follow up Appointment(s)/Referral(s): Tucker Ponce MD [STAFF PHYSICIAN] - 3 Weeks Moo Hilliard MD [Primary Care Provider] - 1-2 days Discharge Disposition: HOME SELF-CARE
== END 2018-07-21 14:56 | disposition home or self-care (01) ==
LOC: EC 10:08 → 1SOBS 12:40
PROVIDERS: ADMIT Internal Medicine; ATTEND Internal Medicine
DX: R07.89 Other chest pain (principal); I49.3 Ventricular premature depolarization; K21.9 Gastro-esophageal reflux disease without esophagitis; R00.2 Palpitations; M25.512 Pain in left shoulder; G89.29 Other chronic pain; Z87.891 Personal history of nicotine dependence; Z86.19 Personal history of other infectious and parasitic diseases; Z79.899 Other long term (current) drug therapy; Z88.2 Allergy status to sulfonamides; Z98.51 Tubal ligation status; Z80.0 Family history of malignant neoplasm of digestive organs; Z82.49 Family history of ischemic heart disease and other diseases of the circulatory system
CPT/HCPCS: 99285; 36415; 93005; 93306; 93351; 85379; 84481; 80061; 80053; 84443; 83735; 84484; 85025; 85049; 85610; 85730; 71046; G0378 ×2

== ENCOUNTER → 2020-09-02 | Outpatient (CLI) | payer MEDICAID ==
--- NOTE | 2020-09-02 14:40 | USB ---
EXAMINATION TYPE: US breast complete BILAT DATE OF EXAM: 09/02/2020 COMPARISON: Mammogram same date CLINICAL HISTORY: R92.8 Abnormal mammogram. All 4 quadrants and retroareolar regions of both breasts and bilateral axilla were scanned with ultra sound. There are bilateral simple, complicated and clustered cysts. In the left breast at 3:00, there is a 1.2 x 0.5 x 0.7 irregular hypoechoic mass and ultrasound-guide d biopsy is recommended. In the left breast at 8:00, there is a 0.4 x 0.3 x 0.4 cm irregular hypoechoic mass and management is dependent upon biopsy results at 3:00. There is cortical thickening of multiple bilateral axillary lymph nodes. Patient reports COVID vaccin ation 2 weeks ago. Follow-up bilateral axillary ultrasound is recommended in 6 -8 weeks. IMPRESSION: 1. Ultrasound-guided biopsy is recommended for the 1.2 cm irregular hypoechoic mass at 3:00 in the le ft breast. 2. Management of the slightly irregular hypoechoic mass at 8:00 measuring up to 0.4 cm is dependent u oswaldo biopsy results. 3. Right stereotactic biopsy is recommended for the grouping of calcifications seen on diagnostic lorna mogram. 4. Bilateral axillary ultrasound is recommended in 6-8 weeks for bilateral lymph node cortical thicke eran, likely reactive due to patient's recent cold and vaccination. BI-RADS 4, suspicious.
--- NOTE | 2020-09-04 13:51 | MM ---
Reason for exam: history of benign breast biopsy. Last mammogram was performed 3 years and 4 months ago. History: Family history of breast cancer in maternal grandmother at age 50. US breast aspiration single RT of the right breast, April 25, 2017. Benign US biopsy breast VAD RT of the right breast, April 25, 2017. Benign excisional biopsy of both breasts, 1994. Took hormonal contraceptives for 10 years. Physical Findings: Nurse did not find any significant physical abnormalities on exam. MG 3D Diag Mammo W/Cad DIONNE Bilateral CC and MLO view(s) were taken. LM, CC with magnification, and LM with magnification view(s) were taken of the right breast. Prior study comparison: April 25, 2017, right breast MG diagnostic mammo RT wo CAD. April 14, 2017, bilateral MG 3d diag mammo w/cad DIONNE. The breast tissue is heterogeneously dense. This may lower the sensitivity of mammography. There are heterogeneous calcifications grouping in the right breast slightly lower outer breast at anterior depth. Stereotactic core biopsy recommended. These results were verbally communicated with the patient and result sheet given to the patient on 09/02/20. ASSESSMENT: Incomplete: need additional imaging evaluation, BI-RAD 0 RECOMMENDATION: Ultrasound of both breasts. Stereotactic core biopsy of the right breast. Called Dr. Hilliard's office with mammographic findings and has scheduled an appointment for the patient for 09/26/20 at 2:[address] Santos. Biopsy scheduled for 10/02/20 at 8:00. PRELIMINARY REPORT CALLED AND FAXED TO DR. SANTOS ON 09/04/20.
== END | disposition home or self-care (01) ==
LOC: RADMAMWWP 12:57
PROVIDERS: ATTEND Family Medicine
DX: N63.25 Unspecified lump in the left breast, overlapping quadrants (principal); N63.10 Unspecified lump in the right breast, unspecified quadrant; R92.2 Inconclusive mammogram; R92.1 Mammographic calcification found on diagnostic imaging of breast; Z80.3 Family history of malignant neoplasm of breast
CPT/HCPCS: 77062; 77066

== ENCOUNTER → 2020-10-02 | Day surgery (SDC) | payer MEDICAID ==
[2020-10-02 09:49] VITALS: RESP 16
[2020-10-02 11:17] VITALS: BP 116/69; PULSE 57; TEMP 98
--- NOTE | 2020-10-02 11:36 | P.PCN ---
Date of Procedure: 10/02/20 Preoperative Diagnosis: Microcalcifications of concern right breast Postoperative Diagnosis: Same Procedure(s) Performed: Stereotactic core biopsy Anesthesia: local Surgeon: Lorena Santos Pathology: other (Breast tissue) Condition: stable Disposition: same day Indications for Procedure: Microcalcifications of concern right breast Operative Findings: Radiograph of the specimen reveals microcalcifications of concern Description of Procedure: The patient is a 45-year-old white female who was noted to have microcalcifications of concern on right breast mammogram. Stereotactic core biopsy was recommended. The procedure was discussed with the patient and she wished to proceed. Alternatives such as watchful waiting or open biopsy were not recommended. The patient was brought to the stereotactic core biopsy room. She was positioned prone on the lo-rad table. Condenser Operator film was obtained. The area of concern was identified. This was targeted. The breast was prepped using Betadine. 15 mL of 1% lidocaine were used to anesthetize the area of concern. A 16-gauge vacuum-assisted core rotating biopsy needle was driven to the correct coordinates. The pre-fire films were obtained. The needle was fired. Post fire films were obtained. It appeared that the patient had moved and the needle was the adjusted. X-ray showed the needle to be in what was believed to be the correct location. Core biopsy specimens were obtained however the radiograph did not reveal calcifications in the specimen. The needle was adjusted and repeat biopsy was performed again the calcifications were not in the specimen. A total of 26 specimens were obtained during this process. The needle was withdrawn and the lesion was retargeted. The breast was again prepped using Betadine. An additional 5 mL of 1% lidocaine were used to anesthetize the area. The needle was driven to the correct coordinates. A prefire film was obtained and noted to be in the correct location. The needle was fired and a post fire film was obtained and noted to be in the correct location. 15 core biopsy specimens were obtained. The calcifications were removed. The patient tolerated the procedure in stable condition. The patient will follow with Dr. Cid next week. The specimen was sent to pathology.
--- NOTE | 2020-10-02 11:57 | MM ---
EXAMINATION TYPE: MG stereo VAD BX RT DATE OF EXAM: 10/02/2020 COMPARISON: 09/02/2020 CLINICAL HISTORY: Right breast calcifications TECHNIQUE: Stereotactic guided core biopsy of right breast. FINDINGS: The procedure of stereotactic guided core biopsy was explained to the patient. Benefits, alternatives, and risks were discussed. An informed consent was then obtained. The shortness pathway for biopsy was chosen. Shortness pathway was inferior approach. I performed the localization, then surgeon, Dr. Santos performed the remainder of the procedure. A vacuum assisted biopsy gun was used to obtain multiple core samples. The patient tolerated the procedure well without any immediate complication. The patient was kept in the radiology department for short stay after the procedure and then discharged home in stable condition. Targeted calcifications are identified in specimen mammogram. Post biopsy mammogram shows the clip to appear in satisfactory position relative to the targeted area of concern on the preprocedure images. IMPRESSION: SUCCESSFUL, UNCOMPLICATED STEREOTACTIC GUIDED CORE BIOPSY OF AREA OF CONCERN IN THE RIGHT BREAST, FULL PATHOLOGY RESULTS TO FOLLOW. Please note, patient has bilateral lymphadenopathy on prior ultrasound in the axilla and follow-up ultrasound is recommended in 2-4 weeks. Pathology Results: Benign A. RIGHT BREAST INFERIOR, CORE BIOPSY: Fibrocystic change with columnar cell change, mild periductal chronic inflammation, fibrosis and focal microcalcification. Focal usual ductal hyperplasia. Focal apocrine metaplasia. B. RIGHT BREAST SUPERIOR, CORE BIOPSY: Fibrocystic change with apocrine metaplasia, columnar cell change, focal microcalcification and stromal fibrosis. Usual ductal hyperplasia present. Focal benign adenosis. 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 C. LEFT BREAST, CORE BIOPSY: Features compatible with benign fibroadenoma. Background breast with stromal fibrosis, focal fibrocystic change with apocrine metaplasia and columnar cell change with focal luminal microcalcification. Recommendation Follow up mammogram of both breast and ultrasound of the left breast in 6 months. Needs bilateral axillary ultrasound in 2-4 weeks from today to follow up prior ultrasound finding. ZACHARY
--- NOTE | 2020-10-03 10:03 | USB ---
EXAMINATION TYPE: US biopsy breast VAD LT, MG diagnostic mammo LT wo CAD DATE OF EXAM: 10/02/2020 CLINICAL HISTORY: R92.8 Abnormal Imaging. TECHNIQUE: Ultrasound guided core biopsy of left breast. COMPARISON: 09/02/2020 FINDINGS: The procedure of ultrasound guided core biopsy was explained to the patient. Benefits, alternatives, and risks were discussed. An informed consent was then obtained. The patient was placed in supine positioning for imaging and for the procedure. The overlying skin was prepped and draped in usual sterile fashion. Lidocaine buffered with bicarbonate was used as anesthetic into the skin and subcutaneous tissue up to area of concern in the left breast. A james was made with surgical scalpel. Under ultrasound guidance, a 12-gauge vacuum assisted biopsy gun device was used to obtain 4 core samples. Following this, a biopsy clip was left in lesion. The patient tolerated the procedure well without any immediate complication. The patient was kept in the radiology department for short stay after the procedure and then discharged home in stable condition. Diagnostic left mammogram was obtained with placement seen. IMPRESSION: Successful, uncomplicated ultrasound guided core biopsy of area of concern in the left breast, full pathology results to follow. Pathology Results: Benign A. RIGHT BREAST INFERIOR, CORE BIOPSY: Fibrocystic change with columnar cell change, mild periductal chronic inflammation, fibrosis and focal microcalcification. Focal usual ductal hyperplasia. Focal apocrine metaplasia. B. RIGHT BREAST SUPERIOR, CORE BIOPSY: Fibrocystic change with apocrine metaplasia, columnar cell change, focal microcalcification and stromal fibrosis. Usual ductal hyperplasia present. Focal benign adenosis. 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 C. LEFT BREAST, CORE BIOPSY: Features compatible with benign fibroadenoma. Background breast with stromal fibrosis, focal fibrocystic change with apocrine metaplasia and columnar cell change with focal luminal microcalcification. Recommendation Follow up mammogram of both breast and ultrasound of the left breast in 6 months. Needs bilateral axillary ultrasound in 2-4 weeks from today to follow up with ultrasound finding. ZACHARY
== END ==
LOC: RADMAMWWP 07:33
PROVIDERS: ATTEND Surgery
DX: N60.11 Diffuse cystic mastopathy of right breast (principal); R92.0 Mammographic microcalcification found on diagnostic imaging of breast; N62 Hypertrophy of breast; N60.81 Other benign mammary dysplasias of right breast; Z88.2 Allergy status to sulfonamides
CPT/HCPCS: 88305; 77065; 19081; 19083; A4648 ×2; J2001

== ENCOUNTER → 2020-10-02 | Outpatient (CLI) | payer MEDICAID ==
--- NOTE | 2020-10-02 08:01 | P.GSHP ---
History of Present Illness H&P Date: 10/02/20 Chief Complaint: Radiographic abnormality bilateral breast Renetta is a 45-year-old white female seen in consultation for Dr. Hilliard regarding bilateral mammographic abnormalities. She underwent a bilateral 3-D mammogram in 08/1520. This revealed microcalcifications of concern in the right breast in the lower outer quadrant. Additionally bilateral ultrasound was recommended. This was performed on the same day. The results were 1.2 cm irregular hypoechoic mass at 3:00 in the left breast. Slightly irregular hypoechoic mass at 8:00 in the left breast. In the right breast stereotactic core biopsy was recommended for the calcifications is noted. Bilateral axillary ultrasound was recommended in 6-8 weeks for bilateral lymph node cortical thickening possibly reactive due to recent COVID vaccination. She does not feel any lumps masses or nodules in her breasts. She is not complaining of any nipple discharge or skin changes. She has not had any recent trauma or infection in the breast. She has had bilateral breast biopsies in the past. These were done in the operating room as open biopsies. These were all benign. She has also had a core biopsy of at least one breast in the past. This was also benign. Caffeine: 5 cups/day nicotine: 1 PPD/ 30 years BCP: 5 years/ stopped at 26 hormones: none Family history: mother: pancreatic maternal grandmother: breast paternal grandmother: ? type metastatic Hormonal History: menarche: 12 , breast fed: no, age at first : 27 periods irregular LMP: now Surgical history: tonsil appy 3 bunion bilateral breast biopsy Medical history: none Social Hstory: nicotine: 1 PPD/30 years alcohol: Twice a month drugs: none - Constitutional Constitutional: Reports sweats - EENT Comment: wears glasses Ears: bilateral: decreased hearing Ears, nose, mouth and throat: Denies headache, Denies sore throat - Breasts Breasts: bilateral: as per HPI - Cardiovascular Cardiovascular: Denies chest pain, Denies shortness of breath - Respiratory Respiratory: Reports as per HPI - Gastrointestinal Comment: GERD Gastrointestinal: Denies abdominal pain, Denies diarrhea, Denies nausea, Denies vomiting - Genitourinary (Female) Genitourinary: Denies dysuria, Denies hematuria - Menstruation Comment: irregular - Musculoskeletal Musculoskeletal: Denies myalgias - Integumentary Integumentary: Denies pruritus, Denies rash - Neurological Neurological: Denies numbness, Denies weakness - Psychiatric Psychiatric: Reports anxiety, Denies depression - Endocrine Endocrine: Denies fatigue, Denies weight change - Hematologic/Lymphatic Comment: none - Allergic/Immunologic Allergic/Immunologic: Reports as per HPI Past Medical History Past Medical History: GERD/Reflux, Pneumonia Additional Past Medical History / Comment(s): Bronchitis, Restless leg syndome History of Any Multi-Drug Resistant Organisms: None Reported Past Surgical History: Appendectomy, Section, Tonsillectomy, Tubal Ligation Additional Past Surgical History / Comment(s): bunionectomy bilateral feet x2, bilateral excisional breast biopsy-benign 1994. Past Anesthesia/Blood Transfusion Reactions: No Reported Reaction Past Psychological History: No Psychological Hx Reported Additional Psychological History / Comment(s): Pt resides with her chaoe and 4 children. She is independent. Hx of post depression Past Alcohol Use History: Occasional Additional Past Alcohol Use History / Comment(s): Pt started smoking in 1996 Past Drug Use History: None Reported - Past Family History Father Additional Family Medical History / Comment(s): Father had heart disease. He at the age of 66yrs. Mother Family Medical History: Cancer Additional Family Medical History / Comment(s): Mother is a pancreatic cancer survivor. She was treated for pancreatic cancer 10 yrs ago. Medications and Allergies Home Medications Medication Instructions Recorded Confirmed Type Ranitidine HCl [Zantac] 150 mg PO DAILY 02/24/17 10/02/20 History Sertraline [Zoloft] 200 mg PO HS 02/24/17 10/02/20 History clonazePAM [KlonoPIN] 0.25 mg PO QAM 02/24/17 10/02/20 History clonazePAM [KlonoPIN] 0.5 mg PO HS 02/24/17 10/02/20 History rOPINIRole HCL [Requip] 0.5 mg PO HS 07/20/18 10/02/20 History hydroCHLOROthiazide [Hydrodiuril] 12.5 mg PO DAILY 10/02/20 10/02/20 History Allergies Allergy/AdvReac Type Severity Reaction Status Date / Time Sulfa (Sulfonamide Allergy Mild tongue Verified 10/02/20 07:25 Antibiotics) swelling Surgical - Exam - General no distress - Eyes normal ocular movement - ENT no hearing loss, no congestion - Neck no masses, trachea midline - Respiratory normal respiratory effort, clear to auscultation - Cardiovascular Rhythm: regular Heart Sounds: normal: S1, S2 - Abdomen Abdomen: soft - Integumentary normal turgor - Neurologic no disoriented, no combative - Musculoskeletal normal gait, normal posture - Psychiatric oriented to time, oriented to person, oriented to place, speech is normal, memory intact Breast exam: BRA: 36D inspection: Bilateral grade 3 ptosis, bilateral breast scars well-healed Palpation: Right breast: Multiple positional exam fibrocystic changes, no dominant masses or nodules of concern James axilla: No adenopathy of concern Left breast: Multi-positional exam fibrocystic changes, no dominant masses or nodules of concern Left axilla: No adenopathy of concern Results Mammogram and ultrasound reviewed with radiology Dr. Tubbs Assessment and Plan Assessment: Impression/Plan: 1. Right breast microcalcifications. Stereotactic core biopsy is recommended Left breast 2 areas for which ultrasound-guided core biopsy recommended Risk and benefits of the procedure discussed with the patient. She understands and wishes to proceed. Cc: Dr. Hilliard
[2020-10-02 15:35] VITALS: BP 117/74; PULSE 67; RESP 18; TEMP 98.3
== END ==
LOC: WWCWWP 07:09
PROVIDERS: ATTEND Surgery
DX: R92.0 Mammographic microcalcification found on diagnostic imaging of breast (principal); F17.210 Nicotine dependence, cigarettes, uncomplicated; K21.9 Gastro-esophageal reflux disease without esophagitis; Z79.899 Other long term (current) drug therapy; Z88.2 Allergy status to sulfonamides
CPT/HCPCS: 77065

== ENCOUNTER → 2020-10-09 | Outpatient (CLI) | payer MEDICAID ==
[2020-10-09 09:22] VITALS: BP 113/78; PULSE 73; RESP 16; TEMP 98.1
--- NOTE | 2020-10-09 09:53 | P.PN ---
Subjective Progress Note Date: 10/09/20 Principal diagnosis: Fibrocystic breast changes/fibroadenoma Renetta is a 45 year old status post stereotactic core biopsy of the right breast which was fibrocystic change, and left ultrasound-guided core biopsy which was benign fibroadenoma. She tolerated the procedures well. She is not complaining of any pain. She does have bilateral breast bruising. She was noted to have bilateral axillary node enlargement and is recommended to have a repeat axillary ultrasound to follow this area which is scheduled for October 20. She had the COVID vaccination on the left side July 17 and August 15. Objective - Vital Signs Vital signs: Vital Signs Temp 98.1 F 10/09/20 09:17 Pulse 73 10/09/20 09:17 Resp 16 10/09/20 09:17 BP 113/78 10/09/20 09:17 Pulse Ox 97 10/09/20 09:17 Intake & Output 10/08/20 10/09/20 10/09/20 18:59 06:59 18:59 Weight 83.915 kg - Constitutional General appearance: Present: cooperative - EENT Eyes: Present: EOMI ENT: Present: hearing grossly normal - Neck Neck: Present: normal ROM - Respiratory Respiratory: bilateral: CTA - Cardiovascular Heart sounds: normal: S1, S2 - Integumentary Integumentary Comment(s): bilateral echymosis at biopsy sites no evidence of infection - Musculoskeletal Musculoskeletal: Present: gait normal - Psychiatric Psychiatric: Present: A&O x's 3, appropriate affect, intact judgment & insight Assessment and Plan Assessment: Impression: 1. Patient status post right breast stereotactic core biopsy and left breast ultrasound core biopsy both benign left side was a fibroadenoma 2. Prominent bilateral axillary lymph nodes on ultrasound Plan: 1. Repeat axillary ultrasound in follow-up after this 2. Repeat bilateral mammogram in 6 months secondary to right lateral biopsies; ultrasound repeated of the left breast to follow fibroadenoma CC: Arminda
== END ==
LOC: WWCWWP 09:08
PROVIDERS: ATTEND Surgery
DX: D24.2 Benign neoplasm of left breast (principal); Z88.2 Allergy status to sulfonamides; Z87.891 Personal history of nicotine dependence

== ENCOUNTER → 2020-10-20 | Outpatient (CLI) | payer MEDICAID ==
--- NOTE | 2020-10-20 17:47 | US ---
EXAMINATION TYPE: US axilla LT DATE OF EXAM: 10/20/2020 COMPARISON: 09/02/2020 CLINICAL HISTORY: 45-year-old female R59.0 ENLARGED LYMPH NODES. Axillary lymphadenopathy. Technique: Multiple sonographic images of the left axilla were obtained. FINDINGS: Multiple lymph nodes noted within the left axilla. Largest is borderline to mildly enlarged measuring 2.2 x 1.7 x 0.9 cm (versus 2.7 x 0.9 cm, previously). Cortical thickening now up to 2.2 mm versus 4. 1 mm, previously. IMPRESSION: And number of nonenlarged and borderline to mildly enlarged left axillary lymph nodes remain measurin g up to 1.7 cm short axis, decreased in size from prior also a decreasing cortical thickness. An jose tional follow-up assessment can be performed at the patient's 6 month postbiopsy follow-up ultrasound .
--- NOTE | 2020-10-20 17:50 | US ---
EXAMINATION TYPE: US axilla RT DATE OF EXAM: 10/20/2020 COMPARISON: 09/02/2020 CLINICAL HISTORY: 45-year-old female R59.0 ENLARGED LYMPH NODES. Axillary lymphadenopathy. TECHNIQUE: Multiple sonographic images of the right axilla were obtained. FINDINGS: Multiple lymph nodes are present in the right axilla, largest measuring 2.0 x 1.5 x 0.9 cm. (Versus 2 .6 x 1.4 x 0.8 cm, previously). The cortical thickening has decreased now measuring 3.4 mm versus 7.7 mm, previously. IMPRESSION: Nonenlarged and borderline sized right axillary lymph nodes remain measuring up to 1.5 cm (decreased in size in long axis dimension and also with decreasing cortical thickness). These can be reassessed at the patient's 6 month postbiopsy follow-up ultrasound.
== END | disposition home or self-care (01) ==
LOC: RADUSWWP 17:03
PROVIDERS: ATTEND Family Medicine
DX: R59.0 Localized enlarged lymph nodes (principal)

== ENCOUNTER → 2020-10-30 | Outpatient (CLI) | payer MEDICAID ==
[2020-10-30 15:02] VITALS: BP 123/82; PULSE 71; RESP 16; TEMP 98.2
--- NOTE | 2020-10-30 15:11 | P.PN ---
Subjective Progress Note Date: 10/30/20 Principal diagnosis: Bilateral axillary adenopathy Fibrocystic breast changes/fibroadenoma Renetta is a 45 year old status post stereotactic core biopsy 10-02-20 of the right breast which was fibrocystic change, and left ultrasound-guided core biopsy which was benign fibroadenoma. She tolerated the procedures well. She is not complaining of any pain. She does have bilateral breast bruising. She was noted to have bilateral axillary node enlargement and is recommended to have a repeat axillary ultrasound to follow this area which is scheduled for October 20. She had the COVID vaccination on the left side July 17 and August 15. The patient had bilateral axillary ultrasounds performed on . Both revealed nonenlarged borderline to mildly enlarged left axillary and right axillary lymph nodes felt to be decreased in size with decreased cortical thickening. The recommendation was for the patient to undergo a repeat 6 month ultrasound of both axilla at the same time that she received a left breast mammogram. The patient does not feel any enlarged adenopathy or anything of concern. In either her breast or the axillas. Family History: mother: pancreatic cancer maternal grandmother: breast cancer paternal grandmother: metastatic cancer Surgical History: bilateral breast biopsy appy tonselectomy bunionectomy Medical History: HTN GERD depression/anxiety restless leg Objective - Exam BMI 29.9 - Constitutional General appearance: Present: cooperative - EENT Eyes: Present: EOMI ENT: Present: hearing grossly normal - Neck Neck: Present: normal ROM - Respiratory Respiratory: bilateral: CTA - Cardiovascular Heart sounds: normal: S1, S2 - Gastrointestinal Gastrointestinal Comment(s): No hepatomegaly or splenomegaly General gastrointestinal: Present: soft - Integumentary Integumentary: Present: normal turgor - Musculoskeletal Musculoskeletal: Present: gait normal - Psychiatric Psychiatric: Present: A&O x's 3, appropriate affect, intact judgment & insight - Additional findings Additional findings: Bresat Exam: BRA: 36D inspection: Bilateral grade 2 ptosis Palpation: Right breast: Increased nodularity in the immediate retroareolar area felt to be related to resolving changes from biopsy, no other dominant masses or nodules of concern, fibrocystic changes Right axilla: Adenopathy consistent with what was noted on ultrasound Left breast: Fibrocystic changes Left axilla: Shoddy adenopathy Assessment and Plan Assessment: Impression: HTN GERD depression/anxiety restless leg bilateral axillary adenopathy decreased in size and cortical thickening decreased Plan: 1. Left breast diagnostic mammogram in 6 months 2. Bilateral axillary ultrasound in 6 months 3. Patient call sooner if any questions or concerns Cc: Dr. Moo Hilliard
== END ==
LOC: WWCWWP 14:47
PROVIDERS: ATTEND Surgery
DX: R59.0 Localized enlarged lymph nodes (principal); F41.9 Anxiety disorder, unspecified; I10 Essential (primary) hypertension; K21.9 Gastro-esophageal reflux disease without esophagitis; G25.81 Restless legs syndrome; F32.9 Major depressive disorder, single episode, unspecified; Z88.2 Allergy status to sulfonamides; Z87.891 Personal history of nicotine dependence

== ENCOUNTER → 2021-04-09 | Outpatient (CLI) | payer MEDICAID ==
--- NOTE | 2021-04-10 11:04 | MM ---
Reason for exam: follow-up at short interval from prior study. Last mammogram was performed 6 months ago. History: Family history of breast cancer in maternal grandmother at age 50. Benign MG stereo VAD BX RT of the right breast, October 02, 2020. Benign US biopsy breast VAD LT of the left breast, October 02, 2020. US breast aspiration single RT of the right breast, April 25, 2017. Benign US biopsy breast VAD RT of the right breast, April 25, 2017. Benign excisional biopsy of both breasts, 1994. Took hormonal contraceptives for 10 years. Physical Findings: Nurse did not find any significant physical abnormalities on exam. MG 3D Diag Mammo W/Cad DIONNE Bilateral CC and MLO view(s) were taken. Prior study comparison: October 02, 2020, left breast MG diagnostic mammo LT wo CAD. September 02, 2020, bilateral MG 3d diag mammo w/cad DIONNE. The breast tissue is extremely dense which could obscure a lesion on mammography. No significant new findings when compared with previous films. These results were verbally communicated with the patient and result sheet given to the patient on 04/09/21. ASSESSMENT: Benign, BI-RAD 2 RECOMMENDATION: Routine screening mammogram of both breasts in 1 year.
--- NOTE | 2021-04-10 11:05 | USB ---
Reason for exam: follow-up at short interval from prior study. History: Family history of breast cancer in maternal grandmother at age 50. Benign MG stereo VAD BX RT of the right breast, October 02, 2020. Benign US biopsy breast VAD LT of the left breast, October 02, 2020. US breast aspiration single RT of the right breast, April 25, 2017. Benign US biopsy breast VAD RT of the right breast, April 25, 2017. Benign excisional biopsy of both breasts, 1994. Took hormonal contraceptives for 10 years. US Breast Limited LT Technologist: Hailey Snyder Left limited breast ultrasound including focal area of concern, retroareolar and axilla demonstrates no cystic or solid lesion seen. Scanned 2-4 o'clock. These results were verbally communicated with the patient and result sheet given to the patient on 04/09/21. ASSESSMENT: Benign, BI-RAD 2 RECOMMENDATION: Routine screening mammogram of both breasts in 1 year. Manage patient on a clinical basis.
== END | disposition home or self-care (01) ==
LOC: RADMAMWWP 13:36
PROVIDERS: ATTEND Surgery
DX: R92.8 Other abnormal and inconclusive findings on diagnostic imaging of breast (principal); Z80.3 Family history of malignant neoplasm of breast
CPT/HCPCS: 77062; 77066

== ENCOUNTER → 2021-07-10 | Outpatient (CLI) | payer MEDICAID ==
[2021-07-10 12:11] VITALS: BP 113/78; PULSE 81; RESP 18; TEMP 98.3
--- NOTE | 2021-07-10 12:22 | P.PN ---
Subjective Progress Note Date: 07/10/21 Principal diagnosis: Fibrocystic breast changes Renetta is a 46 year old female with a history of fibrocystic breast changes. She had a right breast stero biopsy on 10-02-20; benign, and a left breast ultrasound biopsy on 10-02-20 also benign. She had a bilateral mammogram and ultrasound on 04-09-21 which were benign BIRAD 2. Is not complaining of any new lumps masses or nodules of concern in either breast. She is not complaining of any nipple discharge or breast pain. The patient was recently noted to be anemic. She just did a cola-guard. She is awaiting results of this. Pateint is doing [facility] me for medical testing; she will let us know the results. Patient is however interested in meeting with our genetic counselors. Caffeine: 5 cups/day nicotine: 1 PPD/ 30 years BCP: 5 years/ stopped at 26 hormones: none Family history: mother: pancreatic maternal grandmother: breast paternal grandmother: ? type metastatic Hormonal History: menarche: 12 , breast fed: no, age at first : 27 periods irregular LMP: now Surgical history: tonsil appy 3 bunion bilateral breast biopsy Medical history: none Social Hstory: nicotine: 1 PPD/30 years alcohol: Twice a month drugs: none - Constitutional Constitutional: Reports sweats - EENT Comment: wears glasses Ears: bilateral: decreased hearing Ears, nose, mouth and throat: Denies headache, Denies sore throat - Breasts Breasts: bilateral: as per HPI - Cardiovascular Cardiovascular: Denies chest pain, Denies shortness of breath - Respiratory Respiratory: Reports as per HPI - Gastrointestinal Comment: GERD Gastrointestinal: Denies abdominal pain, Denies diarrhea, Denies nausea, Denies vomiting - Genitourinary (Female) Genitourinary: Denies dysuria, Denies hematuria - Menstruation Comment: irregular - Musculoskeletal Musculoskeletal: Denies myalgias - Integumentary Integumentary: Denies pruritus, Denies rash - Neurological Neurological: Denies numbness, Denies weakness - Psychiatric Psychiatric: Reports anxiety, Denies depression - Endocrine Endocrine: Denies fatigue, Denies weight change - Hematologic/Lymphatic Comment: none - Allergic/Immunologic Allergic/Immunologic: Reports as per HPI Objective - Exam BMI 27.4 - Constitutional General appearance: Present: cooperative - EENT Eyes: Present: EOMI ENT: Present: hearing grossly normal - Neck Neck: Present: normal ROM - Respiratory Respiratory: bilateral: CTA - Cardiovascular Rhythm: regular Heart sounds: normal: S1, S2 - Gastrointestinal General gastrointestinal: Present: soft - Integumentary Integumentary: Present: normal turgor - Musculoskeletal Musculoskeletal: Present: gait normal - Psychiatric Psychiatric: Present: A&O x's 3, appropriate affect, intact judgment & insight - Additional findings Additional findings: Breast Exam: BRA: 36D inspection: Bilateral grade 2/3 ptosis Palpation: Right breast: Multiple positional exam fibrocystic changes no discrete dominant masses or nodules of concern Right axilla: No adenopathy of concern Left breast: Multi-positional exam fibrocystic changes no discrete dominant masses or nodules of concern Left axilla: No adenopathy of concern Assessment and Plan Assessment: Impression: Fibrocystic breast changes Positive family history of cancer Recent bilateral mammogram which was benign BIRADS 2 Patient is interested in genetic testing has recently done at [facility] July test on her own Plan: Consider meeting with genetic counselor Bilateral mammogram in March 2022 with appointment at that time Patient will follow up sooner any questions or concerns counselled on lifestyle modification, stopping smoking and decrease caffeine intake CC: Dr. Hilliard
== END ==
LOC: WWCWWP 12:01
PROVIDERS: ATTEND Surgery
DX: N60.11 Diffuse cystic mastopathy of right breast (principal); N60.12 Diffuse cystic mastopathy of left breast; Z80.3 Family history of malignant neoplasm of breast; F17.210 Nicotine dependence, cigarettes, uncomplicated; Z88.2 Allergy status to sulfonamides

== ENCOUNTER → 2021-09-11 | Outpatient (CLI) | payer MEDICAID ==
[2021-09-11 22:24] LABS: Basophils # (A) 0.07 X 10*3/uL (0.00-0.10); Basophils % (A) 1.1 %; Eosinophils # (A) 0.19 X 10*3/uL (0.04-0.35); Eosinophils % (A) 2.9 %; HCT 42.2 % (37.2-46.3); HGB 13.6 g/dL (12.0-15.0); Immature Grans, Automated 0.3 %; Lymphocytes # (A) 2.22 X 10*3/uL (0.90-5.00); Lymphocytes % (A) 33.7 %; MCH 29.4 pg (27.0-32.0); MCHC 32.2 g/dL (32.0-37.0); MCV 91.1 fL (80.0-97.0); Mean Platelet Volume 10.5 fL (9.5-12.2); Monocytes # (A) 0.41 X 10*3/uL (0.20-1.00); Monocytes % (A) 6.2 %; NRBC Per 100 WBC 0 /100 WBCS (0.0-0.0); Neutrophils # (A) 3.67 X 10*3/uL (1.80-7.70); Neutrophils % (A) 55.8 %; Platelet Count 233 X 10*3/uL (140-440); RBC 4.63 X 10*6/uL (4.10-5.20); RDW 13.1 % (11.5-14.5); WBC 6.58 X 10*3/uL (4.50-10.00)
[2021-09-11 23:07] LABS: ALT 50 U/L (8-44); AST 29 U/L (13-35); African American GFR (CKD) 99.5 (60.0-200.0); Albumin 4.6 g/dL (3.8-4.9); Albumin/Globulin Ratio 2.13 (1.60-3.17); Alkaline Phosphatase 105 U/L (41-126); BUN/Creat Ratio 17.67 Ratio (12.00-20.00); Blood Urea Nitrogen 14.4 mg/dL (9.0-27.0); Calcium 9.9 mg/dL (8.7-10.3); Carbon Dioxide 26.7 mmol/L (20.0-27.5); Chloride 101 mmol/L (96-109); Chol/HDL Ratio 4.78 Ratio; Globulin 2.2 g/dL (1.6-3.3); Glucose 88 mg/dL (70-110); LDL Cholesterol,Calculated 147.6 mg/dL (0.0-131.0); Non-African American GFR(CKD) 85.9 (60.0-200.0); Potassium 3.8 mmol/L (3.5-5.5); Sodium 139 mmol/L (135-145); Total Protein 6.8 g/dL (6.2-8.2)
== END | disposition home or self-care (01) ==
LOC: LABWHC1 15:47
PROVIDERS: ATTEND Family Medicine
DX: Z00.00 Encounter for general adult medical examination without abnormal findings (principal)
CPT/HCPCS: 36415; 80053; 80061; 83036; 84443; 85025

== ENCOUNTER → 2022-04-12 | Outpatient (CLI) | payer MEDICAID ==
--- NOTE | 2022-04-13 08:20 | MM ---
Reason for Exam: Screening (asymptomatic). Last screening mammogram was performed 12 month(s) ago. Patient History: Menarche at age 12. First Full-Term at age 27. Patient has history of breast feeding. Hormonal Contraceptives for 10 years until age 26. 1994, Bilateral Benign Excisional Biopsy. 10/02/2020, Benign Core Biopsy on the left side. 10/02/2020, Benign Core Biopsy on the right side. 04/25/2017, Cyst Aspiration on the Right side. 04/25/2017, Benign Core Biopsy on the right side. Maternal grandmother had breast cancer, age 50. Risk Values: Alina 5 year model risk: 2.1%. NCI Lifetime model risk: 15.6%. Prior Study Comparison: 09/24/2015 Bilateral Diagnostic Mammogram, [facility]. 04/14/2017 Bilateral Diagnostic Mammogram, [facility]. 04/25/2017 Right Diagnostic Mammogram, [facility]. 09/02/2020 Bilateral Diagnostic Mammogram, [facility]. 10/02/2020 Left Diagnostic Mammogram, [facility]. 04/09/2021 Bilateral Diagnostic Mammogram, [facility]. Tissue Density: The breast tissue is heterogeneously dense. This may lower the sensitivity of mammography. Findings: Analyzed By CAD. There is no suspicious group of microcalcifications or new suspicious mass in either breast. Overall Assessment: Benign, BI-RAD 2 Management: Screening Mammogram of both breasts in 1 year. A clinical breast exam by your physician is recommended on an annual basis and results should be correlated with mammographic findings. Electronically signed and approved by: Rashid Bello M.D. Radiologis
== END | disposition home or self-care (01) ==
LOC: RADMAMWWP 08:02
PROVIDERS: ATTEND Surgery
DX: Z12.31 Encounter for screening mammogram for malignant neoplasm of breast (principal); Z80.3 Family history of malignant neoplasm of breast
CPT/HCPCS: 77063; 77067

== ENCOUNTER → 2023-04-13 | Outpatient (CLI) | payer MEDICAID ==
--- NOTE | 2023-04-13 09:01 | MM ---
Reason for Exam: Screening (asymptomatic). Last screening mammogram was performed 12 month(s) ago. Patient History: Menarche at age 12. First Full-Term at age 27. Postmenopausal. Patient has history of breast feeding. Hormonal Contraceptives for 10 years until age 26. 1994, Bilateral Benign Excisional Biopsy. 10/02/2020, Benign Core Biopsy on the left side. 10/02/2020, Benign Core Biopsy on the right side. 04/25/2017, Cyst Aspiration on the Right side. 04/25/2017, Benign Core Biopsy on the right side. Maternal grandmother had breast cancer, age 50. Risk Values: Alina 5 year model risk: 1.9%. NCI Lifetime model risk: 15.3%. Prior Study Comparison: 10/02/2020 Left Diagnostic Mammogram, [facility]. 04/09/2021 Bilateral Diagnostic Mammogram, [facility]. 04/12/2022 Bilateral MG 3D screening mammo w/cad, [facility]. Tissue Density: The breast tissue is heterogeneously dense. This may lower the sensitivity of mammography. Findings: Analyzed By CAD. Bilateral breast biopsy clips. There is no suspicious group of microcalcifications or new suspicious mass. Overall Assessment: Negative, BI-RAD 1 Management: Screening Mammogram of both breasts in [address] [facility] will attempt to contact patient to return for supplemental views and ultrasound if indicated. Patient should continue monthly self-breast exams. A clinical breast exam by your physician is recommended on an annual basis. This exam should not preclude additional follow-up of suspicious palpable abnormalities. Note on Alina scores and lifetime risk: 1. A Alina score greater than 3% is considered moderate risk. If this is the case, consider specialist referral to assess eligibility for a risk reducing agent. 2. If overall lifetime risk for the development of breast cancer is 20% or higher, the patient may qualify for future screening with alternating mammogram and breast MRI. Electronically signed and approved by: Sesar Snyder DO
== END | disposition home or self-care (01) ==
LOC: RADMAMWWP 08:02
PROVIDERS: ATTEND Surgery
DX: Z12.31 Encounter for screening mammogram for malignant neoplasm of breast (principal); Z78.0 Asymptomatic menopausal state; Z80.3 Family history of malignant neoplasm of breast
CPT/HCPCS: 77063; 77067

== ENCOUNTER → 2024-10-03 | Outpatient (CLI) | payer MEDICAID ==
[2024-10-03 19:08] LABS: HCT 44.9 % (37.2-46.3); HGB 15.3 g/dL (12.0-15.0); MCH 30.7 pg (27.0-32.0); MCHC 34.1 g/dL (32.0-37.0); MCV 90.2 FL (80.0-97.0); NRBC Per 100 WBC 0 X 10*3/uL (0.00-0.01); Platelet Count 235 X 10*3/uL (140-440); RBC 4.98 X 10*6/uL (4.10-5.20); RDW 13.2 % (11.5-14.5); WBC 7.13 X 10*3/uL (4.50-10.00)
[2024-10-03 21:39] LABS: ALT 36 U/L (8-44); AST 29 U/L (13-35); Albumin 4.5 g/dL (3.8-4.9); Albumin/Globulin Ratio 1.61 Ratio (1.60-3.17); Alkaline Phosphatase 130 U/L (41-126); Anion Gap 18.00 mmol/L (4.00-12.00); BUN/Creat Ratio 11.33 Ratio (12.00-20.00); Blood Urea Nitrogen 10.2 mg/dL (9.0-27.0); Calcium 10.3 mg/dL (8.7-10.3); Carbon Dioxide 24.0 mmol/L (21.6-31.8); Chloride 102 mmol/L (96-109); Cholesterol 250.00 mg/dL (0.00-200.00); Globulin 2.8 g/dL (1.6-3.3); Glucose 92 mg/dL (70-110); HDL Cholesterol 50.50 mg/dL (40.00-60.00); LDL Cholesterol,Calculated 174.3 mg/dL (0.0-131.0); Potassium 3.5 mmol/L (3.5-5.5); Sodium 144 mmol/L (135-145); Total Protein 7.3 g/dL (6.2-8.2); Triglycerides 126.00 mg/dL (0.00-149.00); VLDL Calculation 25.20 mg/dL (5.00-40.00)
[2024-10-03 22:28] LABS: NT-Pro-B-Type Natriuretic Pept 69 pg/mL (0-125)
== END | disposition home or self-care (01) ==
LOC: LABWHC1 15:04
PROVIDERS: ATTEND Student in an Organized Health Care Education/Training Program
DX: D72.9 Disorder of white blood cells, unspecified (principal); I50.9 Heart failure, unspecified; E11.9 Type 2 diabetes mellitus without complications; E78.5 Hyperlipidemia, unspecified; E03.9 Hypothyroidism, unspecified; R79.89 Other specified abnormal findings of blood chemistry
CPT/HCPCS: 36415; 80053; 80061; 83036; 83880; 84443; 85027